=== PATIENT | female | born 1935 | race Caucasian/White ===

== ENCOUNTER 2016-09-21 22:14 | Inpatient (IN) | payer OTHER ==
[~2016-09-21] VITALS: Ht 162.6 cm; Wt 81.6 kg
[~2016-09-21 22:14] MED LIST: AMLODIPINE BES2.5 M1 PO; ANTIFUNGAL30 G1 TOP; ATIVAN0.5 M1 PO; BISCOLAX10 M1 PR; CLARITIN10 M3 PO; CLONAZEPAM0.5 M2 PO; FOLIC ACID1 M1 PO; GABAPENTIN300 M2 PO; IRON325 M2 PO; LISINOPRIL20 M1 PO; LOPERAMIDE2 M2 PO; MACROBID 100 M100 MG PO; METOPROLOL TART25 M1 PO; MILK OF MA400 MG/52 PO; OMEPRAZOLE20 M2 PO; PAIN RELIEF650 MG PO; PERPHENAZINE2 M1 PO; SENNA S TABLET1 EACH PO; SPIRIVA18 MCG INH; TYLENOL WITH C1 EACH PO; TYLENOL325 M1 PO; VITAMIN D1000 UNIT PO
--- NOTE | 2016-09-21 22:18 | NUR ---
PT BIBA FROM ECF S/P MECHANICAL FALL TONIGHT. PT HAS NO COMPLAINTS FROM FALL, HOWEVER C/O N/V AND POOR PO INTAKE OVER THE LAST FEW DAYS. PT ALSO HAS NOTICABLE UMBILICAL HERNIA. LIZ CALIX AT BEDSIDE
--- NOTE | 2016-09-21 22:21 | ED GI/GU/ABDOMINAL COMPLAINT ---
History of Present Illness General Chief Complaint: Nausea, Vomiting, Diarrhea Stated Complaint: BIBA N/V/D Source: patient Exam Limitations: no limitations Vital Signs & Intake/Output Vital Signs & Intake/Output Vital Signs Date Time Temp Pulse Resp B/P Pulse O2 O2 Flow FiO2 Ox Delivery Rate 09/21 2359 99.5 67 20 100/57 93 Nasal 2.0L Cannula 09/21 2321 Room Air 09/21 2219 98.0 65 19 92/58 ED Intake and Output 09/22 0000 09/21 1200 Intake Total 1000 Output Total Balance 1000 Intake, IV 1000 Patient 180 lb Weight Allergies Coded Allergies: No Known Allergies (08/06/16) Triage Note: PT BIBA FROM ECF S/P MECHANICAL FALL TONIGHT. PT HAS NO COMPLAINTS FROM FALL, HOWEVER C/O N/V AND POOR PO INTAKE OVER THE LAST FEW DAYS. PT ALSO HAS NOTICABLE UMBILICAL HERNIA. LIZ CALIX AT BEDSIDE Triage Nurses Notes Reviewed? yes ? N Is pt currently ? No Onset: Abrupt Duration: day(s): (4), constant, continues in ED Timing: recent history Quality/Severity: mild, moderate Location: generalized abdomen No Modifying Factors: none HPI: 81-year-old female brought emergency room for nausea vomiting diarrhea has been going on for the past 4 days. Patient comes from an assisted living facility. When the patient was coming out of the bathroom she reports that her legs gave out and she kind of just come off the ground but did not fall hard and hit her head or have any neck pain or trauma from the fall. Patient has been feeling very weak and not eating. Patient's blood pressure was borderline low by EMS. Patient also complaining of some abdominal pain and discomfort. Denies any chest pain. Denies any shortness of breath. Denies any cough. (YOGI HILL,GARRY) Reconcile Medications Acetaminophen (Tylenol) 325 MG TABLET 650 MG PO QHS PAIN (Reported) Acetaminophen (Pain Relief) 650 MG TABLET.ER 650 MG PO 1200 PAIN (Reported) Amlodipine Besylate 2.5 MG TABLET 1 TAB PO DAILY HTN (Reported) Bisacodyl (Biscolax) 10 MG SUPP.RECT 10 MG AL QODPRN PRN CONSTIPATION ( Reported) Cholecalciferol (Vitamin D3) (Vitamin D) 1,000 UNIT TABLET 1 TAB PO DAILY SUPPLEMENT (Reported) Clonazepam 0.5 MG TABLET 1 TAB PO BID PSYCH (Reported) Clotrimazole (Antifungal) 1 % CREAM..G. 1 MAGGIE TOP BID PRN ANITFUNGAL ( Reported) Ferrous Sulfate (IRON) 325 MG (65 MG IRON) CAPSULE.ER 325 MG PO DAILY SUPPLEMENT (Reported) Folic Acid 1 MG TABLET 1 TAB PO DAILY SUPPLEMENT (Reported) Gabapentin 300 MG CAPSULE 300 MG PO BID PAIN (Reported) Lisinopril 20 MG TABLET 1 TAB PO DAILY HTN (Reported) Loperamide HCl (Loperamide) 2 MG CAPSULE 2 MG PO Q3H PRN DIARRHEA (Reported) Loratadine (Claritin) 10 MG CAPSULE 10 MG PO DAILY ALLERGIES (Reported) Lorazepam (Ativan) 0.5 MG TABLET 0.25 MG PO BIDPRN PRN ANXIETY (Reported) Magnesium Hydroxide (Milk Of Magnesia) 400 MG/5 ML ORAL.SUSP 30 ML PO QODPRN PRN CONSTIPATION (Reported) Metoprolol Tartrate 25 MG TABLET 12.5 MG PO BID HTN (Reported) Omeprazole 20 MG CAPSULE.DR 1 CAP PO DAILY GERD (Reported) Perphenazine 2 MG TABLET 3 MG PO DAILY SCHIZOAFFECTIVE (Reported) Sennosides/Docusate Sodium (Senna S Tablet) 8.6 MG-50 MG TABLET 1 TAB PO DAILY GI (Reported) Tiotropium [place] (Spiriva) 18 MCG CAP.W.DEV 18 MCG INH DAILY COPD (Reported ) Tylenol With Codeine (Tylenol With Codeine #3 Tablet) 300 MG-30 MG TABLET 1 TAB PO BID PAIN (Reported) (DILCIA BENJAMIN,JAKE Arita) Past History Travel History Traveled to [place] past 21 day No Medical History Any Pertinent Medical History? see below for history EENT: allergies Cardiovascular: hypertension Respiratory: COPD Gastrointestinal: GERD, DUODENAL ULCER Psychiatric: anxiety, schizo affective disorder Surgical History Surgical History: non-contributory Psychosocial History Who do you live with Patient/Self What is your primary language Congolese Family History Hx Contributory? No (GARRY ARGUETA) Review of Systems Review of Systems Constitutional: Reports: see HPI. EENTM: Reports: no symptoms. Respiratory: Reports: no symptoms. Cardiovascular: Reports: no symptoms. GI: Reports: see HPI. Genitourinary: Reports: see HPI. Musculoskeletal: Reports: no symptoms. Skin: Reports: no symptoms. Neurological/Psychological: Reports: no symptoms. Hematologic/Endocrine: Reports: no symptoms. Immunologic/Allergic: Reports: no symptoms. All Other Systems: Reviewed and Negative (GARRY ARGUETA) Physical Exam Physical Exam General Appearance: well developed/nourished, no apparent distress, alert Head: atraumatic, normal appearance Eyes: Bilateral: normal appearance. Ears, Nose, Throat, Mouth: hearing grossly normal, moist mucous membrane Neck: normal inspection, full range of motion, normal alignment Respiratory: normal breath sounds, no respiratory distress Cardiovascular: regular rate/rhythm Gastrointestinal: soft, non-tender Back: normal inspection Extremities: normal range of motion Neurologic/Psych: awake, alert, oriented x 3, normal gait Skin: intact, normal color Core Measures ACS in differential dx? Yes Severe Sepsis Present: No Septic Shock Present: No (GARRY ARGUETA) ED Sepsis Exam Date of Focused Sepsis Exam: 09/21/16 Time of Focused Sepsis Exam: 2221 Sepsis Cardiac Exam: Regular Rate/Rhythm Sepsis Resp Exam: CTA Sepsis Cap Refill Exam: >2 sec Sepsis Peripheral Pulse Exam: Normal Sepsis Peripheral Pulse Location: Radial Sepsis Skin Color Exam: Jaundiced Skin Temp/Moisture Exam: Cool/Dry (GARRY ARGUETA) Progress Differential Diagnosis: appendicitis, biliary colic, cholecystitis, diverticulitis, ectopic , gastritis, hepatitis, hernia, hemorrhoids, ischemic bowel, inflamm bowel dis, kidney stone, Magaly-Jade tear, ovarian cyst , ovarian torsion, pancreatitis, PID/cervicitis, peptic ulcer, PUD/GERD, perforated viscous, SBO, threatened AB, UTI/pyelo Plan of Care: Orders Procedure Date/time Status LACTIC ACID 09/22 0117 Active Admit to inpatient 09/22 0040 Active NGT 09/22 0031 Active Jason, Insertion/Removal/Asses 09/21 2344 Active CULTURE,URINE 09/21 234 Active BLOOD CULTURE 09/21 2216 Active URINALYSIS 09/21 2216 Complete TROPONIN LEVEL 09/21 2216 Complete MAGNESIUM 09/21 2216 Complete LACTIC ACID 09/21 2216 Complete COMPREHENSIVE METABOLIC PANEL 09/21 2216 Complete CBC WITHOUT DIFFERENTIAL 09/21 2216 Complete EKG 09/21 2216 Active Current Medications Sig/Hawa Start time Last Medication Dose Stop Time Status Admin Sodium Chloride 1,000 ML BOLUS ONE 09/21 2345 AC (Normal Saline 0.9%) 09/22 0044 Laboratory Tests 09/21/162352: Urinalysis LIGHT H, Urine Color YEL, Urine Clarity CLEAR, Urine pH 5.0, Ur Specific [place] 1.025, Urine Protein TRACE H, Urine Ketones NEG, Urine Nitrite NEG, Urine Bilirubin NEG@ICTO, Urine Urobilinogen 0.2, Ur Leukocyte Esterase TRACE H, Ur Microscopic SEDIMENT EXAMINED, Urine RBC 1-3, Urine WBC 5-10 H, Ur Epithelial Cells FEW, Urine Hemoglobin NEG, Urine Glucose NEG 09/21/162231: Anion Gap 16, Estimated GFR 20 L, BUN/Creatinine Ratio 22.2, Glucose 131 H, Lactic Acid 1.9, Calcium 8.4, Magnesium 1.7, Total Bilirubin 0.5, AST 20, ALT 27 , Alkaline Phosphatase 82, Troponin I 0.02, Total Protein 6.7, Albumin 3.5, Globulin 3.2, Albumin/Globulin Ratio 1.1, CBC w Diff NO MAN DIFF REQ, RBC 3.91 L, MCV 88.0, MCH 28.4, RDW 14.0, MPV 7.4, Gran % 84.8 H, Lymphocytes % 9.6 L, Monocytes % 5.0, Eosinophils % 0, Basophils % 0.6, Absolute Granulocytes 11.2 H , Absolute Lymphocytes 1.3, Absolute Monocytes 0.7 H, Absolute Eosinophils 0, Absolute Basophils 0.1, PUBS MCHC 32.3 L Microbiology 09/21 2352 URINE ROUT: Urine Culture - RECD 09/21 2248 BLOOD: Blood Culture - RECD 09/21 2229 BLOOD: Blood Culture - RECD Diagnostic Imaging: Viewed by Me: Radiology Read, CT Scan. Discussed w/RAD: Radiology Read, CT Scan. Initial ED EKG: normal intervals, normal p-waves, normal sinus rhythm, rate (83) , nonspecific ST T wave chg (YOGI HILL,GARRY) CXR Impression: PATIENT: CONNER ARANDA PRESENT AGE: 81 PATIENT ACCOUNT NO: [id number] : 35 LOCATION: [facility] ORDERING PHYSICIAN: GARRY HILL SERVICE DATE: 09/21/16 EXAM TYPE: RAD - XRY-PORTABLE CHEST XRAY EXAMINATION: XR PORTABLE CHEST CLINICAL INFORMATION: Weakness. COMPARISON: Chest x-ray 08/06/2016. TECHNIQUE: Portable view of the chest was obtained. FINDINGS: The lungs are mildly hypoinflated, without focal airspace consolidation. There is minimal dependent atelectasis. No pleural effusions or pneumothoraces are identified. Cardiomediastinal contours are within normal limits. Soft tissues are unremarkable. No acute osseous abnormality is identified. IMPRESSION: No acute pulmonary process. DICTATED BY: JORDAN AL MD DATE/TIME DICTATED:09/21/162247 DEPOSITION OPERATOR:FABIENNE DATE/TIME TRANSCRIBED:09/21/162247 CONFIDENTIAL, DO NOT COPY WITHOUT APPROPRIATE AUTHORIZATION. <Electronically signed in Other Vendor System> SIGNED BY: JORDAN AL MD 09/21/16 2001 Comments: Case was discussed with Dr. Freeman. The surgical PA will be down to evaluate the patient. (DILCIA BENJAMIN,JAKE Arita) Departure Departure Disposition: STILL A PATIENT Condition: Stable Referrals: AMADO BENJAMIN,TRISTIAN Saeed (PCP/Family) Departure Forms: Customer Survey General Discharge Information (GARRY ARGUETA) Departure Clinical Impression Primary Impression: Abdominal pain Secondary Impressions: Acute renal failure, Nausea & vomiting Admission Note Spoke With: CONRAD WHITLOCK MD Documentation of Exam: Documentation of any treatments & extenuating circumstances including Concerns Regarding Discharge (functional status, medication knowledge or non-compliance, living conditions, etc.) that warrant an admission rather than observation: [ Nothing by mouth, IV fluids, NG tube to low wall suction, surgery will consult. Aggressive hydration. Once patient is medically stable she will require Gastrografin and small bowel follow-through to see if there is an obstruction.] PA/MARINE INSULATOR Co-Sign Statement Statement: ED Attending supervision documentation- [X] I saw and evaluated the patient. I have also reviewed all the pertinent lab results and diagnostic results. I agree with the findings and the plan of care as documented in the PA's/MARINE INSULATOR's documentation. [X] I have reviewed the ED Record and agree with the PA's/MARINE INSULATOR's documentation. [] Additions or exceptions (if any) to the PAs/MARINE INSULATOR's note and plan are summarized below: [Patient was walking to the bathroom when her legs just gave out and she fell to the floor. Patient states that she has not been eating or drinking well because of nausea and vomiting over the past 4 days. Patient denies any diarrhea. Patient just generalized feels weak. Patient denies any pain anywhere. Patient states that her abdomen feels distended. Patient states that she does have an abdominal wall hernia but that is easily reducible. Patient had an abdominal and pelvic CAT scan performed with IV contrast. This was done because the patient's prior creatinine was looked at in mistake and her current creatinine was not yet back. Patient was aggressively treated with IV fluids prior to and after the CAT scan. Patient's umbilical hernia is easily reducible.] (DILCIA BENJAMIN,JAKE Arita) Critical Care Note Critical Care Note Critical Care Time: 30-74 min (YOGI HILL,GARRY)
[2016-09-21 22:41] LABS: ABSOLUTE BASOPHIL COUNT 0.1 /CUMM (0.0-0.2); ABSOLUTE EOSINOPHIL COUNT 0 /CUMM (0.0-0.7); ABSOLUTE GRANULOCYTE CT 11.2 /CUMM (1.4-6.5); ABSOLUTE LYMPH COUNT 1.3 /CUMM (1.2-3.4); ABSOLUTE MONOCYTE COUNT 0.7 /CUMM (0.10-0.60); BASOPHIL % 0.6 % (0.0-2.0); EOSINOPHIL % 0 % (0-5); HEMATOCRIT 34.4 % (37-47); MEAN CORPUSCULAR HGB 28.4 PG (27.0-31.0); MEAN CORPUSCULAR HGB CONC 32.3 G/DL (33.0-37.0); MEAN PLATELET VOLUME 7.4 FL (7.4-10.4); PLATELET COUNT 343 /CUMM (130-400); RED BLOOD CELL CT 3.91 /CUMM (4.20-5.40); WHITE BLOOD CELL COUNT 13.3 /CUMM (4.8-10.8)
[2016-09-21 22:48] LABS: GRANULOCYTE % 84.8 % (42.2-75.2)
--- NOTE | 2016-09-21 22:50 | NUR ---
PORTABLE CHEST XRAY DONE AT BEDSIDE.
--- NOTE | 2016-09-21 22:56 | RADIOLOGY REPORT ---
EXAMINATION: XR PORTABLE CHEST CLINICAL INFORMATION: Weakness. COMPARISON: Chest x-ray 08/06/2016. TECHNIQUE: Portable view of the chest was obtained. FINDINGS: The lungs are mildly hypoinflated, without focal airspace consolidation. There is minimal dependent atelectasis. No pleural effusions or pneumothoraces are identified. Cardiomediastinal contours are within normal limits. Soft tissues are unremarkable. No acute osseous abnormality is identified. IMPRESSION: No acute pulmonary process.
--- NOTE | 2016-09-21 23:19 | NUR ---
PT TO CAT SCAN VIA STRETCHER.
--- NOTE | 2016-09-21 23:58 | NUR ---
URINE TRIO SENT TO LAB. PT INCONTINENT OF STOOL. VIKI CARE PROVIDED. GARRIDO CATHETER INSERTED. 300CCS DARK YELLOW URINE OUTPUT. EDUCATED ON PURPOSE AND USE OF CATHETER.
--- NOTE | 2016-09-22 00:10 | NUR ---
SPOKE WITH PT DAUGHTER LIA. STATES SHE CANNOT GET HERE DUE TO WEATHER AND ROADS CLOSED. WILL CALL FOR UPDATES. NUMBERS , AND
--- NOTE | 2016-09-22 00:15 | CT SCAN REPORT ---
EXAMINATION: CT ABDOMEN AND PELVIS WITH CONTRAST CLINICAL INFORMATION: Abdominal pain and vomiting. COMPARISON: None. TECHNIQUE: Multidetector volumetric imaging was performed of the abdomen and pelvis after the IV administration of 93 mL of Optiray 320 intravenous contrast. Sagittal and coronal reformatted images were obtained on the technologist's workstation. DLP: 556 mGy-cm. FINDINGS: LUNG BASES: There is a partially visualized subpleural nodule along the periphery of the right middle lobe measuring 8 mm with surrounding groundglass opacities (series 2, image 1). There is minimal dependent right basilar atelectasis. No pleural or pericardial effusions are identified. LIVER, GALLBLADDER, AND BILIARY TREE: The liver is normal in size, shape, and attenuation. No focal hepatic lesion or biliary ductal dilatation is present. The gallbladder is distended without evidence of radiopaque gallstones, gallbladder wall thickening or pericholecystic inflammatory changes. The common bile duct is prominent and is visualized measuring up to 1.3 cm in diameter. No radiopaque intraductal stones are identified. PANCREAS: Generalized pancreatic atrophy. No peripancreatic inflammatory changes or fluid collections. SPLEEN: Unremarkable. ADRENAL GLANDS: Unremarkable. KIDNEYS AND URETERS: The kidneys are normal in size and enhance homogeneously, without solid parenchymal lesions. A 0.8 cm simple renal cortical cyst is identified within the lower pole of the right kidney. Also noted is a 0.6 cm simple renal cortical cyst within the midpole of the left kidney. There is no appreciable nephrolithiasis or hydroureteronephrosis of either kidney or renal collecting system. No ureteral stones are identified. BLADDER: Scattered foci of air within the urinary bladder. This is likely secondary to recent catheterization. GASTROINTESTINAL TRACT: Evaluation of the gastrointestinal system demonstrates multiple dilated loops of small bowel throughout the abdomen and pelvis. Dilated loops of small bowel appear to correspond to dilated loops of duodenum, jejunum and ileum. Of note, there is a site of transition along the left paramedian abdominal wall, in the region of a moderate-sized fat and small bowel containing left paramedian abdominal wall hernia at the level of the umbilicus. Loops of small bowel proximal to this incarcerated small bowel hernia are dilated. Loops of small bowel distal to this site or decompressed. The colon also appears decompressed although air and fluid are identified within the colon. There are postsurgical changes related to prior gastric surgery. No bowel wall pneumatosis is identified. There are no extraluminal foci of air to suggest perforation. No organizing intra-abdominal or pelvic fluid collections are identified and there is no free intraperitoneal air. ABDOMINAL WALL: As noted above, there is a moderate left paramedian abdominal wall hernia containing dilated loops of small bowel and fluid. LYMPH NODES: No significant abdominal or pelvic adenopathy. VASCULAR: Scattered atherosclerosis of the abdominal aorta and its branching vessels, without aneurysmal dilatation. The imaged abdominal vasculature appears to be grossly patent. PELVIC VISCERA: Unremarkable. OSSEOUS STRUCTURES: No acute osseous abnormality. Moderate multilevel degenerative changes of the imaged thoracolumbar spine. IMPRESSION: Multiple dilated loops of small bowel throughout the abdomen and pelvis secondary to obstructed loops of small bowel within a moderate-sized, left paramedian abdominal wall hernia, as described above. Loops of small bowel within the hernia sac and upstream to the hernia sac are distended. Loops of small bowel and colon distal to the ventral abdominal wall hernia are decompressed. Air and fluid are identified within decompressed loops of distal small bowel as well as the colon. This constellation of findings is indicative of at least a partial small bowel obstruction secondary to a moderate-sized left paramedian ventral abdominal wall hernia. No extraluminal foci of air to suggest perforation. No bowel wall pneumatosis. Scattered foci of air within the bladder lumen, likely secondary to recent catheterization. This critical result was discussed with Dr. Manuel Ware at 12:01 AM on 09/22/2016 and it was ascertained that the content and urgency of the report was understood at the time of direct communication.
--- NOTE | 2016-09-22 00:52 | NUR ---
3 L NS INFUSING AT THIS TIME. SURGICAL PA AT BEDSIDE TO EVAL.
--- NOTE | 2016-09-22 01:13 | History & Physical ---
SHAYNA BENJAMIN,MARIYA 09/22/16 0112: General Information and HPI MD Statement: I have seen and personally examined CONNER ARANDA and documented this H&P. The patient is a 81 year old F who presented with a patient stated chief complaint of [Nausea, vominting, diarrhea]. Source of Information: patient, old records, EMS Exam Limitations: no limitations (yesterday) History of Present Illness: patient is a 81-year-old female with past medical history significant for GERD, ventral wall herniation, perforated duodenal ulcer, anxiety, she is a affective disorder, hypertension, COPD came to the ER with nausea vomiting started 4 days ago. 5 weeks ago she was transferred to a new extended care facility but increase the heights. 6 days ago she had a UTI for which she was given Lomotil. For the past 3 days she had constipation along with nausea and vomiting. She was able to tolerate liquid diet. She had one episode of vomitus each day which is clear liquid without any blood in it. Since yesterday she started to have diarrhea - one episode so far watery and loose without any definite. She also reports crampy abdominal pain in the epigastric region where she had ventral wall herniation. She denies any fevers/chills/sick contacts/change in food habits. She felt weak today, gave out while she is walking and she was able to walk with a walker at baseline. She denies any chest pain, shortness of breath, redness, changes in urinary habits. Allergies/Medications Allergies: Coded Allergies: No Known Allergies (08/06/16) Home Med list Acetaminophen (Tylenol) 325 MG TABLET 650 MG PO QHS PAIN (Reported) Acetaminophen (Pain Relief) 650 MG TABLET.ER 650 MG PO 1200 PAIN (Reported) Amlodipine Besylate 2.5 MG TABLET 1 TAB PO DAILY HTN (Reported) Bisacodyl (Biscolax) 10 MG SUPP.RECT 10 MG VA QODPRN PRN CONSTIPATION ( Reported) Cholecalciferol (Vitamin D3) (Vitamin D) 1,000 UNIT TABLET 1 TAB PO DAILY SUPPLEMENT (Reported) Clonazepam 0.5 MG TABLET 1 TAB PO BID PSYCH (Reported) Clotrimazole (Antifungal) 1 % CREAM..G. 1 MAGGIE TOP BID PRN ANITFUNGAL ( Reported) Ferrous Sulfate (IRON) 325 MG (65 MG IRON) CAPSULE.ER 325 MG PO DAILY SUPPLEMENT (Reported) Folic Acid 1 MG TABLET 1 TAB PO DAILY SUPPLEMENT (Reported) Gabapentin 300 MG CAPSULE 300 MG PO BID PAIN (Reported) Lisinopril 20 MG TABLET 1 TAB PO DAILY HTN (Reported) Loperamide HCl (Loperamide) 2 MG CAPSULE 2 MG PO Q3H PRN DIARRHEA (Reported) Loratadine (Claritin) 10 MG CAPSULE 10 MG PO DAILY ALLERGIES (Reported) Lorazepam (Ativan) 0.5 MG TABLET 0.25 MG PO BIDPRN PRN ANXIETY (Reported) Magnesium Hydroxide (Milk Of Magnesia) 400 MG/5 ML ORAL.SUSP 30 ML PO QODPRN PRN CONSTIPATION (Reported) Metoprolol Tartrate 25 MG TABLET 12.5 MG PO BID HTN (Reported) Omeprazole 20 MG CAPSULE.DR 1 CAP PO DAILY GERD (Reported) Perphenazine 2 MG TABLET 3 MG PO DAILY SCHIZOAFFECTIVE (Reported) Sennosides/Docusate Sodium (Senna S Tablet) 8.6 MG-50 MG TABLET 1 TAB PO DAILY GI (Reported) Tiotropium Lorraine (Spiriva) 18 MCG CAP.W.DEV 18 MCG INH DAILY COPD (Reported ) Tylenol With Codeine (Tylenol With Codeine #3 Tablet) 300 MG-30 MG TABLET 1 TAB PO BID PAIN (Reported) Compliance With Home Meds: FAIR Past History Travel History Traveled to [place] past 21 day No Medical History EENT: allergies Cardiovascular: hypertension Respiratory: COPD Gastrointestinal: GERD, DUODENAL ULCER Psychiatric: anxiety, schizo affective disorder Surgical History Surgical History: perforated duodenal ulcer Past Family/Social History Family History Relations & Conditions if any Relation not specified for: *No pertinent family history Psychosocial History Where do you live? Extended Care Facility Who Do You Live With? self Services at Home: Nursing, Physical Therapy Smoking Status: Former Smoker ETOH Use: denies use Illicit Drug Use: denies illicit drug use Living Will? yes Functional Ability ADLs Independent: dressing, eating, toileting, bathing. Ambulation: walker IADLs Needs Assist: shopping, housework, finances, food prep, telephone, transportation, medication admin. Employment History Employment Retired Review of Systems Review of Systems Constitutional: Reports: see HPI, malaise, weakness. EENTM: Reports: see HPI, visual changes, hearing changes. Cardiovascular: Reports: no symptoms, see HPI. Respiratory: Reports: see HPI. GI: Reports: see HPI, diarrhea, nausea, vomiting. Genitourinary: Reports: see HPI. Musculoskeletal: Reports: no symptoms, see HPI. Skin: Reports: no symptoms, see HPI. Neurological/Psychological: Reports: no symptoms, see HPI. All Other Systems: Reviewed and Negative Comments ROS negative except the above. Exam & Diagnostic Data Last 24 Hrs of Vital Signs/I&O Vital Signs Date Time Temp Pulse Resp B/P Pulse O2 O2 Flow FiO2 Ox Delivery Rate 09/22 0636 97.8 88 16 102/66 92 Nasal Cannula 09/22 0239 98.1 81 18 114/56 95 Nasal 2.0L Cannula 09/21 2359 99.5 67 20 100/57 93 Nasal 2.0L Cannula 09/21 2321 Room Air 09/21 2218 98.0 65 19 92/58 Intake & Output 09/22 1600 09/22 0800 09/22 0000 Intake Total 1000 Output Total 100 Balance -100 1000 Intake, IV 1000 Number 1 Bowel Movements Output, 100 Gastric Drainage Patient 81.647 kg Weight Physical Exam General Appearance Alert, Oriented X3, Cooperative, Mild Distress Skin No Rashes, No Breakdown HEENT Atraumatic, PERRLA, EOMI Neck Supple, No JVD Cardiovascular Regular Rate, Normal S1, Normal S2, No Murmurs Lungs Clear to Auscultation, Normal Air Movement Abdomen ventral wall herniation evident in the epigastric region. Tender to palpation. Hyperactive bowel sounds. Neurological Normal Speech, Normal Tone, Sensation Intact Extremities No Clubbing, No Cyanosis, No Edema Vascular Pulses Symmetrical Body Front and Back (Adult) 1) Ventral wall herniation, partially reducible. Last 24 Hrs of Labs/Maurice: Laboratory Tests 09/22/16 0420: Lactic Acid 1.2 09/22/16 0420: Anion Gap 8, Estimated GFR 31 L, BUN/Creatinine Ratio 28.8 H, CBC w Diff NO MAN DIFF REQ, RBC 3.44 L, MCV 89.0, MCH 28.7, RDW 14.5, MPV 7.4, Gran % 74.1, Lymphocytes % 15.4 L, Monocytes % 10.2 H, Eosinophils % 0, Basophils % 0.3, Absolute Granulocytes 7.8 H, Absolute Lymphocytes 1.6, Absolute Monocytes 1.1 H, Absolute Eosinophils 0, Absolute Basophils 0, PUBS MCHC 32.3 L 09/21/162352: Urinalysis LIGHT H, Urine Color YEL, Urine Clarity CLEAR, Urine pH 5.0, Ur Specific Warren[place] 1.025, Urine Protein TRACE H, Urine Ketones NEG, Urine Nitrite NEG, Urine Bilirubin NEG@ICTO, Urine Urobilinogen 0.2, Ur Leukocyte Esterase TRACE H, Ur Microscopic SEDIMENT EXAMINED, Urine RBC 1-3, Urine WBC 5-10 H, Ur Epithelial Cells FEW, Urine Hemoglobin NEG, Urine Glucose NEG 09/21/162231: Anion Gap 16, Estimated GFR 20 L, BUN/Creatinine Ratio 22.2, Glucose 131 H, Lactic Acid 1.9, Calcium 8.4, Magnesium 1.7, Total Bilirubin 0.5, AST 20, ALT 27 , Alkaline Phosphatase 82, Troponin I 0.02, Total Protein 6.7, Albumin 3.5, Globulin 3.2, Albumin/Globulin Ratio 1.1, CBC w Diff NO MAN DIFF REQ, RBC 3.91 L, MCV 88.0, MCH 28.4, RDW 14.0, MPV 7.4, Gran % 84.8 H, Lymphocytes % 9.6 L, Monocytes % 5.0, Eosinophils % 0, Basophils % 0.6, Absolute Granulocytes 11.2 H , Absolute Lymphocytes 1.3, Absolute Monocytes 0.7 H, Absolute Eosinophils 0, Absolute Basophils 0.1, PUBS MCHC 32.3 L Microbiology 09/21 2352 URINE ROUT: Urine Culture - RECD 09/21 2248 BLOOD: Blood Culture - RECD 09/21 2229 BLOOD: Blood Culture - RECD Diagnostic Data CXR Results IMPRESSION: - Technically limited study. Distal aspect of nasogastric tube is difficult to definitively assess on this exam, suspected to course below the diaphragm towards the stomach. I would recommend a dedicated abdominal radiograph to ensure proper positioning given the limits of this exam. - Central vascular congestion without overt edema. Bibasilar atelectasis. Other Results Abdomen and pelvis CT IMPRESSION: Multiple dilated loops of small bowel throughout the abdomen and pelvis secondary to obstructed loops of small bowel within a moderate-sized, left paramedian abdominal wall hernia, as described above. Loops of small bowel within the hernia sac and upstream to the hernia sac are distended. Loops of small bowel and colon distal to the ventral abdominal wall hernia are decompressed. Air and fluid are identified within decompressed loops of distal small bowel as well as the colon. This constellation of findings is indicative of at least a partial small bowel obstruction secondary to a moderate-sized left paramedian ventral abdominal wall hernia. No extraluminal foci of air to suggest perforation. No bowel wall pneumatosis. Scattered foci of air within the bladder lumen, likely secondary to recent catheterization. Assessment/Plan Assessment: patient is a 81-year-old female with past medical history significant for GERD, ventral wall herniation, perforated duodenal ulcer, anxiety, she is a affective disorder, hypertension, COPD came to the ER with nausea vomiting started 4 days ago. She also had diarrhea since yesterday. ER Vital signs Tmax of 99.5, pulse 67, blood pressure 92/58 mmHg, pulse ox of 92% Significant labs include white count of 13.3, creatinine of 2.3, lactic acid of 1.9 Urinalysis is cloudy with leukocyte esterase positive CT abdomen and pelvis with IV contrast shows multiple dilated bowel loops with partial obstruction in the herniated region Plan Small bowel obstruction secondary to obstructed bowel loop ventral wall herniation * Admitted to general medicine * Nothing by mouth with NG suction * Aggressive IV fluids hydration * Pain management and F/U blood cultures * Surgery on board, we'll closely follow for now LACY likely from decreased dehydration * There Creatinine of 2.3 with a baseline of 1.2 * Started on IV fluids at the rate of 200 mL per hour * We will trend down to 100 mL per hour in the next few hours * Monitor BEP every day and F/U urine cultures * Strict in's and outs with a Jason catheter * She had clear urine in the ER Mild hypotension * IV hydration for now * Holding all antihypertensives including metoprolol tartarate 12.5mg, amlodipine 2.5mg, Lisinopril 20mg. History of GERD * On pantoprazole 40mg IV History of COPD * TRC/nebs History of schizoaffective disorder * On clonazepam, lorazepam, perphenazine at home * Will resume as her clinical status improves DVT Prophylaxis * SC heparin Code Status * Full code As Ranked By This Provider Problem List: 1. Acute renal failure 2. Nausea & vomiting 3. Abdominal pain 4. Accident due to mechanical fall without injury Core Measures/Miscellaneous Acute Coronary Syndrome ACS Diagnosis: No Cerebrovascular Accident CVA/TIA Diagnosis: No Congestive Heart Failure CHF Diagnosis: No Venous Thromboembolism VTE Risk Factors: Age > 40, Immobility, paresis VTE Prophylaxis Ordered Inpt: Pharm- Heparin No Mech VTE prophylaxis d/t: No contraindications No VTE Pharm Prophylaxis d/t: No contraindications VTE Diagnosis: No VTE Type: NONE VTE Confirmed by (Test): NONE Severe Sepsis Severe Sepsis Present: No Septic Shock Septic Shock Present: No Miscellaneous Documentation Attending Case Discussed With: CONRAD WHITLOCK MD Primary Care Physician: TRISTIAN FISCHER MD Patient sees these Specialists Unknown Level of Patient Care: General Medicine FRANCISCO JAVIER MCCLENDON MD 09/22/16 0424: Resident Review Statement Resident Statement: examined this patient, discussed with campus recruiting intern, agreed with campus recruiting intern, reviewed EMR data (avail), reviewed images, amended to note Other Findings: This is 81 year female resident of [facility] was sent in with chief complaint of 3 days history of persistent nausea with vomiting associated with abdominal pain. Patient has past medical history of COPD, hypertension, GERD, anxiety, schizoaffective disorder, perforated duodenal ulcer which was repaired 4 years prior to admission, ventral abdominal wall hernia was fine up until 45 days prior to admission when she developed episode of diarrhea and her PCP recommended her to take Lomotil. Since then patient remained constipated for past 3 days and noted to have persistent nausea with 1 episode of food containing nonbloody vomiting/day associated with abdominal distention specifically ventral wall hernia distention with crampy abdominal pain surrounding ventral wall hernia. Patient was not able to moderate any food for past 3 days and was on clear liquid diet. Due to persistent nausea/vomiting patient was sent in to ER for further evaluation. Patient reports one episode of loose BM yesterday night. She denies any fever, chills, sick contacts, change in diet, recent travel. She denies any chest pain, shortness of breath, urinary symptoms. Her vitals on admission were T 99.5, HR 67, RR 20, BP 100/57, O2 sat 93% on 2 L. On physical exam patient noted alert oriented 3 in [id number] distress, HEENT PERRLA EOMI, neck supple, noted NG tube placed through right nare,, heart S1-S2 normal without murmur, lungs clear on auscultation, abdomen noted distended with hyperactive bowel sounds and noted tenderness around ventral wall hernia with outpouching ventral wall hernia which was easily reducible on superior part but noted nonreducible inferior hard hernia wall, no peripheral edema, no focal gross neuro deficit. Labs revealed leukocytosis of 13,300 with left shift, H&H 11.1/34.4, sodium 131, BUN 51, creatinine 2.3 (baseline creatinine 1.2, blood glucose 131, lactic acid 1.9, magnesium 1.7, normal LFT, negative troponin. UA showed trace leukocyte esterase with WBC of 5-10 CT abdomen and pelvis revealed evidence of partial small bowel obstruction secondary to a moderate-sized left paramedian ventral abdominal wall hernia. EKG showed normal sinus rhythm with heart rate of 83, PVC no acute ST-T changes, QTC 447 Assessment: This is 81-year-old female with past medical history of COPD hypertension, perforated tuna ulcer, ventral abdominal wall hernia presented with 3 days history of nausea, vomiting associated with abdominal pain found to have partial small bowel obstruction with moderate size left paramedian ventral abdominal wall hernia. 1. Small bowel obstruction secondary to partially obstructed bowel loop in ventral abdominal wall hernia - Admit to general medicine floor - Keep nothing by mouth - Continue NG section - Aggressive IV fluid hydration - Pain management - Appreciate surgical input 2. AK I likely secondary to dehydration - Continue aggressive IV fluid hydration - Monitor renal function - Strict DONNIE's with Jason catheter 3. Borderline hypotension - Continue IV fluid hydration - Hold all antihypertensive medication 4. COPD - Continue TRC 5. Schizoaffective disorder and anxiety - All oral anxiolytic medication on hold as patient is nothing by mouth 6. DVT prophylaxis - Subcutaneous heparin 7. Full code CONRAD WHITLOCK 09/22/16 0644: Attending MD Review Statement Attending Statement Attending MD Statement: examined this patient, discuss w/resident/PA/PRINCIPAL SOFTWARE ENGINEER, agreed w/resident/PA/PRINCIPAL SOFTWARE ENGINEER, reviewed EMR data (avail), reviewed images, amended to note Attending Assessment/Plan: Cc: Nausea, vomiting, diarrhea, fall PMH: COPD, HTN, GERD, schizoaffective disorder, surgery for duodenal ulcer perforation. Patient had nausea vomiting last 3 days, progressively decreased by mouth intake since last 3 days, legs gave out and had a fall without trauma. So she came to ER. Patient had diarrhea before, followed by constipation for 3 days. Vitals: T max 99.5, HR, RR in acceptable range BP at presentation 92/58 improved to 114/56 after hydration, saturating well on 2 L nasal cannula. On exam: A O 3 , mild distress, neck supple, no lymphadenopathy, mucosa dry, no JVD. Abdomen: Distended, tympanic in upper quadrants, ventral hernia partially reducible, decreased bowel sounds right lower quadrant, increased gurgling sound ultrasound ventral hernia. CVS: S1-S2, RRR. RS: Clear entry bilaterally. No focal neurological deficit. No dependent edema. Labs: WBC 13.3, neutrophils 84%, bicarbonate 20, creatinine 2.3 (increased from 1.2 in July), anion gap 16, LFT unremarkable, UA shows leukocyte esterase. CXR: No acute pulmonary process X-ray abdomen and pelvis with IV contrast: Multiple dilated loops of small bowel throughout the abdomen and pelvis secondary to obstructed loops of small bowel within a moderate-sized, left paramedian abdominal wall hernia, as described above. Loops of small bowelwithin the hernia sac and upstream to the hernia sac are distended. Loops of small bowel and colon distal to the ventral abdominal wall hernia are decompressed. Air and fluid are identified within decompressed loops of distal small bowel as well as the colon. This constellation of findings is indicative of at least a partial small bowel obstruction secondary to a moderate-sized left paramedian ventral abdominal wall hernia. No extraluminal foci of air to suggest perforation. No bowel wall pneumatosis. Assessment and plan #1 ? Partial small bowel obstruction: CT findings as mentioned above, ventral hernia is partially reducible, Surgery was consulted, who suggested NG tube and barium swallow follow-through in morning. Continue NG tube to low suction, nothing by mouth, pain control, trend lactate #2 acute kidney injury: Probably secondary to volume contraction, continue aggressive hydration, along with elevated creatinine patient received IV contrast in ER, repeat BMP in a.m., strict I's and O's with Jason. #3 history of COPD: When necessary nebulization with albuterol and ipratropium. #4 HTN: Hold all oral antihypertensives, blood pressure in the low normal side with elevated creatinine. #5 DVT prophylaxis with heparin, adequate pain control
--- NOTE | 2016-09-22 01:14 | NUR ---
BED ASSIGNMENT [phone]
--- NOTE | 2016-09-22 01:20 | Cons- General Surgery ---
ERLINAD YUAN 09/22/16 0104: General Information and HPI Consulting Request Date of Consult: 09/22/16 Requested By: Emergency department Reason for Consult: Small bowel obstruction with possible incarcerated hernia Source of Information: patient, CAT scan taken today Exam Limitations: clinical condition, confusion History of Present Illness: Mr. Valentine is an 81-year-old female resident of an area assisted living home with past medical history of hypertension anxiety COPD schizo affective disorder , and past surgical history of hernia repair and perforated duodenal ulcer, presents with weakness at assisted living facility associated with fall and anorexia over the past 2 days associated with nausea and vomiting. She states that she has had normal urination but has complained of diarrhea over the past 2 days. She also states that she has a history of abdominal wall hernia that she has noticed for about 3 years and has never been painful. CAT scan evaluation in the emergency room today demonstrates dilated loops of small bowel proximal to the site of a ventral hernia. Allergies/Medications Allergies: Coded Allergies: No Known Allergies (08/06/16) Home Med List: Acetaminophen (Tylenol) 325 MG TABLET 650 MG PO QHS PAIN (Reported) Acetaminophen (Pain Relief) 650 MG TABLET.ER 650 MG PO 1200 PAIN (Reported) Amlodipine Besylate 2.5 MG TABLET 1 TAB PO DAILY HTN (Reported) Bisacodyl (Biscolax) 10 MG SUPP.RECT 10 MG NC QODPRN PRN CONSTIPATION ( Reported) Cholecalciferol (Vitamin D3) (Vitamin D) 1,000 UNIT TABLET 1 TAB PO DAILY SUPPLEMENT (Reported) Clonazepam 0.5 MG TABLET 1 TAB PO BID PSYCH (Reported) Clotrimazole (Antifungal) 1 % CREAM..G. 1 MAGGIE TOP BID PRN ANITFUNGAL ( Reported) Ferrous Sulfate (IRON) 325 MG (65 MG IRON) CAPSULE.ER 325 MG PO DAILY SUPPLEMENT (Reported) Folic Acid 1 MG TABLET 1 TAB PO DAILY SUPPLEMENT (Reported) Gabapentin 300 MG CAPSULE 300 MG PO BID PAIN (Reported) Lisinopril 20 MG TABLET 1 TAB PO DAILY HTN (Reported) Loperamide HCl (Loperamide) 2 MG CAPSULE 2 MG PO Q3H PRN DIARRHEA (Reported) Loratadine (Claritin) 10 MG CAPSULE 10 MG PO DAILY ALLERGIES (Reported) Lorazepam (Ativan) 0.5 MG TABLET 0.25 MG PO BIDPRN PRN ANXIETY (Reported) Magnesium Hydroxide (Milk Of Magnesia) 400 MG/5 ML ORAL.SUSP 30 ML PO QODPRN PRN CONSTIPATION (Reported) Metoprolol Tartrate 25 MG TABLET 12.5 MG PO BID HTN (Reported) Omeprazole 20 MG CAPSULE.DR 1 CAP PO DAILY GERD (Reported) Perphenazine 2 MG TABLET 3 MG PO DAILY SCHIZOAFFECTIVE (Reported) Sennosides/Docusate Sodium (Senna S Tablet) 8.6 MG-50 MG TABLET 1 TAB PO DAILY GI (Reported) Tiotropium [place] (Spiriva) 18 MCG CAP.W.DEV 18 MCG INH DAILY COPD (Reported ) Tylenol With Codeine (Tylenol With Codeine #3 Tablet) 300 MG-30 MG TABLET 1 TAB PO BID PAIN (Reported) Past History Medical History EENT: allergies Cardiovascular: hypertension Respiratory: COPD Gastrointestinal: GERD, DUODENAL ULCER Psychiatric: anxiety, schizo affective disorder Surgical History Pertinent Surgical History: non-contributory Psychosocial History ETOH Use: denies use Exam & Diagnostic Data Vital Signs and I&O Vital Signs Date Time Temp Pulse Resp B/P Pulse O2 O2 Flow FiO2 Ox Delivery Rate 09/21 2358 99.5 67 20 100/57 93 Nasal 2.0L Cannula 09/21 2320 Room Air 09/21 2218 98.0 65 19 92/58 Intake & Output 09/22 0000 09/21 1600 09/21 0800 09/21 0000 09/20 1600 Intake Total 1000 Output Total Balance 1000 Intake, IV 1000 Patient 180 lb Weight Physical Exam General Appearance: alert, mild distress, obese Head: atraumatic, normal appearance Eyes: Bilateral: normal appearance. Respiratory: wheezing Cardiovascular: regular rate/rhythm Gastrointestinal: abdomen is softly distended, no pain to palpation, large periumbilical ventral hernia that is completely reducible, with no erythema at the site of the hernia, positive bowel sounds, no evidence of peritonitis or guarding. Extremities: normal inspection Neurologic/Psych: awake, alert Last 24 Hours of Labs: Laboratory Tests 09/21 2232 Chemistry Sodium (137 - 145 mmol/L) 131 L Potassium (3.5 - 5.1 mmol/L) 4.8 Chloride (98 - 107 mmol/L) 94 L Carbon Dioxide (22 - 30 mmol/L) 20 L Anion Gap (5 - 16) 16 BUN (7 - 17 mg/dL) 51 H Creatinine (0.5 - 1.0 mg/dL) 2.3 H Estimated GFR (>60 ml/min) 20 L BUN/Creatinine Ratio (7 - 25 %) 22.2 Glucose (65 - 99 mg/dL) 131 H Lactic Acid (0.7 - 2.1 mmol/L) 1.9 Calcium (8.4 - 10.2 mg/dL) 8.4 Magnesium (1.6 - 2.3 mg/dL) 1.7 Total Bilirubin (0.2 - 1.3 mg/dL) 0.5 AST (14 - 36 U/L) 20 ALT (9 - 52 U/L) 27 Alkaline Phosphatase (<127 U/L) 82 Troponin I (< 0.11 ng/ml) 0.02 Total Protein (6.3 - 8.2 g/dL) 6.7 Albumin (3.5 - 5.0 g/dL) 3.5 Globulin (1.9 - 4.2 gm/dL) 3.2 Albumin/Globulin Ratio (1.1 - 2.2 %) 1.1 Hematology CBC w Diff NO MAN DIFF REQ WBC (4.8 - 10.8 /CUMM) 13.3 H RBC (4.20 - 5.40 /CUMM) 3.91 L Hgb (12.0 - 16.0 G/DL) 11.1 L Hct (37 - 47 %) 34.4 L MCV (81.0 - 99.0 FL) 88.0 MCH (27.0 - 31.0 PG) 28.4 RDW (11.5 - 14.5 %) 14.0 Plt Count (130 - 400 /CUMM) 343 MPV (7.4 - 10.4 FL) 7.4 Gran % (42.2 - 75.2 %) 84.8 H Lymphocytes % (20.5 - 51.1 %) 9.6 L Monocytes % (1.7 - 9.3 %) 5.0 Eosinophils % (0 - 5 %) 0 Basophils % (0.0 - 2.0 %) 0.6 Absolute Granulocytes (1.4 - 6.5 /CUMM) 11.2 H Absolute Lymphocytes (1.2 - 3.4 /CUMM) 1.3 Absolute Monocytes (0.10 - 0.60 /CUMM) 0.7 H Absolute Eosinophils (0.0 - 0.7 /CUMM) 0 Absolute Basophils (0.0 - 0.2 /CUMM) 0.1 PUBS MCHC (33.0 - 37.0 G/DL) 32.3 L Urines Urinalysis LIGHT H Urine Color (YEL,AMB,STR) YEL Urine Clarity (CLEAR) CLEAR Urine pH (5.0 - 8.0) 5.0 Ur Specific [place] (1.001 - 1.035) 1.025 Urine Protein (NEG,<30 MG/DL) TRACE H Urine Ketones (NEG) NEG Urine Nitrite (NEG) NEG Urine Bilirubin (NEG) NEG@ICTO Urine Urobilinogen (0.1 - 1.0 EU/dl) 0.2 Ur Leukocyte Esterase (NEG) TRACE H Ur Microscopic SEDIMENT EXAMINED Urine RBC (0 - 5 /HPF) 1-3 Urine WBC (0 - 2 /HPF) 5-10 H Ur Epithelial Cells (NONE,FEW) FEW Urine Hemoglobin (NEG) NEG Urine Glucose (N MG/DL) NEG Imaging Results: SERVICE DATE: 09/21/16 EXAM TYPE: CAT - CT ABD & PELVIS W IV CONTRAST EXAMINATION: CT ABDOMEN AND PELVIS WITH CONTRAST CLINICAL INFORMATION: Abdominal pain and vomiting. COMPARISON: None. TECHNIQUE: Multidetector volumetric imaging was performed of the abdomen and pelvis after the IV administration of 93 mL of Optiray 320 intravenous contrast. Sagittal and coronal reformatted images were obtained on the technologist's workstation. DLP: 556 mGy-cm. FINDINGS: LUNG BASES: There is a partially visualized subpleural nodule along the periphery of the right middle lobe measuring 8 mm with surrounding groundglass opacities (series 2, image 1). There is minimal dependent right basilar atelectasis. No pleural or pericardial effusions are identified. LIVER, GALLBLADDER, AND BILIARY TREE: The liver is normal in size, shape, and attenuation. No focal hepatic lesion or biliary ductal dilatation is present. The gallbladder is distended without evidence of radiopaque gallstones, gallbladder wall thickening or pericholecystic inflammatory changes. The common bile duct is prominent and is visualized measuring up to 1.3 cm in diameter. No radiopaque intraductal stones are identified. PANCREAS: Generalized pancreatic atrophy. No peripancreatic inflammatory changes or fluid collections. SPLEEN: Unremarkable. ADRENAL GLANDS: Unremarkable. KIDNEYS AND URETERS: The kidneys are normal in size and enhance homogeneously, without solid parenchymal lesions. A 0.8 cm simple renal cortical cyst is identified within the lower pole of the right kidney. Also noted is a 0.6 cm simple renal cortical cyst within the midpole of the left kidney. There is no appreciable nephrolithiasis or hydroureteronephrosis of either kidney or renal collecting system. No ureteral stones are identified. BLADDER: Scattered foci of air within the urinary bladder. This is likely secondary to recent catheterization. GASTROINTESTINAL TRACT: Evaluation of the gastrointestinal system demonstrates multiple dilated loops of small bowel throughout the abdomen and pelvis. Dilated loops of small bowel appear to correspond to dilated loops of duodenum, jejunum and ileum. Of note, there is a site of transition along the left paramedian abdominal wall, in the region of a moderate-sized fat and small bowel containing left paramedian abdominal wall hernia at the level of the umbilicus. Loops of small bowel proximal to this incarcerated small bowel hernia are dilated. Loops of small bowel distal to this site or decompressed. The colon also appears decompressed although air and fluid are identified within the colon. There are postsurgical changes related to prior gastric surgery. No bowel wall pneumatosis is identified. There are no extraluminal foci of air to suggest perforation. No organizing intra-abdominal or pelvic fluid collections are identified and there is no free intraperitoneal air. ABDOMINAL WALL: As noted above, there is a moderate left paramedian abdominal wall hernia containing dilated loops of small bowel and fluid. LYMPH NODES: No significant abdominal or pelvic adenopathy. VASCULAR: Scattered atherosclerosis of the abdominal aorta and its branching vessels, without aneurysmal dilatation. The imaged abdominal vasculature appears to be grossly patent. PELVIC VISCERA: Unremarkable. OSSEOUS STRUCTURES: No acute osseous abnormality. Moderate multilevel degenerative changes of the imaged thoracolumbar spine. IMPRESSION: Multiple dilated loops of small bowel throughout the abdomen and pelvis secondary to obstructed loops of small bowel within a moderate-sized, left paramedian abdominal wall hernia, as described above. Loops of small bowel within the hernia sac and upstream to the hernia sac are distended. Loops of small bowel and colon distal to the ventral abdominal wall hernia are decompressed. Air and fluid are identified within decompressed loops of distal small bowel as well as the colon. This constellation of findings is indicative of at least a partial small bowel obstruction secondary to a moderate-sized left paramedian ventral abdominal wall hernia. No extraluminal foci of air to suggest perforation. No bowel wall pneumatosis. Scattered foci of air within the bladder lumen, likely secondary to recent catheterization. This critical result was discussed with Dr. Manuel Ware at 12:01 AM on 09/22/2016 and it was ascertained that the content and urgency of the report was understood at the time of direct communication. DICTATED BY: JORDAN AL MD DATE/TIME DICTATED:09/21/162357 HEAD OF CONSERVATION:FABIENNE DATE/TIME TRANSCRIBED:09/21/162357 Assessment/Plan Assessment/Plan Ms. Valentine is an 81-year-old female with extensive past medical history, who is currently in acute renal failure presents with dizziness and nausea vomiting and fall. CAT scan today reveals a ventral hernia with dilated loops of small bowel proximal to the hernia. Examination at the bedside in the emergency room this evening demonstrates a completely reducible nontender ventral hernia. However the CAT scan also demonstrates an obstruction which would need further workup. After reviewing this case with Dr. Freeman he feels it best that the patient be admitted to the medical service and that surgery would continue serial abdominal exams, and in the morning obtain a barium swallow when okayed by the medical service to further evaluate the obstruction as needed. In the meantime the patient should have an NG tube to decompress her GI tract and with a history of vomiting minimize the chance of aspiration. Plan Admit to the medical service for optimization Serial abdominal exams Barium swallow to assess location of obstruction when okay by medicine Dr. Freeman will see the patient in the a.m. Consult Acknowledgment - Thank you for your consult request. ALLA SUÁREZ MD 09/23/16 0829: Assessment/Plan Consult Acknowledgment - Thank you for your consult request. 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 We removed the NGT at this time. I had a discussion with the pt and her daughter regarding fixing the hernia to prevent incarceration or strangulation in the future although they are hesitant and concerned of her risks of gen anesthesia given her past hx and hx of COPD. we discussed the possibility of developing bowel and requiring resection in the future if this strangulates and she does not seek medical attention quickly. At the present time she elects not to have surgery but will discuss further. can always perform elective as outpt if she changes her mind.
--- NOTE | 2016-09-22 01:38 | NUR ---
NGT PLACED IN LEFT NOSTRIL. AT 54CM. PT TOLERATED PROCEDURE WELL. 100CC OUTPUT. HOUSE STAFF HERE TO EVAL. AWAITING CHEST XRAY CONFIRMATION OF PLACEMENT.
--- NOTE | 2016-09-22 02:01 | NUR ---
REPORT GIVEN TO RN RACHEL
--- NOTE | 2016-09-22 02:20 | RADIOLOGY REPORT ---
XR PORTABLE CHEST CLINICAL INFORMATION: Check nasogastric tube position. COMPARISON: Chest x-ray 09/21/2015. TECHNIQUE: Portable view of the chest was obtained. FINDINGS: Technically limited study. Distal aspect of nasogastric tube is difficult to definitively assess on this exam, suspected to course below the diaphragm towards the stomach. I would recommend a dedicated abdominal radiograph to ensure proper positioning given the limits of this exam. There is central vascular congestion without overt edema. Mild left basilar atelectasis. No pneumothorax. Cardiac silhouette size is normal. There are no acute osseous findings. IMPRESSION: - Technically limited study. Distal aspect of nasogastric tube is difficult to definitively assess on this exam, suspected to course below the diaphragm towards the stomach. I would recommend a dedicated abdominal radiograph to ensure proper positioning given the limits of this exam. - Central vascular congestion without overt edema. Bibasilar atelectasis.
[2016-09-22 02:39] VITALS: BP 114/56
[2016-09-22 04:45] LABS: ABSOLUTE BASOPHIL COUNT 0 /CUMM (0.0-0.2); ABSOLUTE EOSINOPHIL COUNT 0 /CUMM (0.0-0.7); ABSOLUTE GRANULOCYTE CT 7.8 /CUMM (1.4-6.5); ABSOLUTE LYMPH COUNT 1.6 /CUMM (1.2-3.4); ABSOLUTE MONOCYTE COUNT 1.1 /CUMM (0.10-0.60); BASOPHIL % 0.3 % (0.0-2.0); EOSINOPHIL % 0 % (0-5); GRANULOCYTE % 74.1 % (42.2-75.2); HEMATOCRIT 30.6 % (37-47); MEAN CORPUSCULAR HGB 28.7 PG (27.0-31.0); MEAN CORPUSCULAR HGB CONC 32.3 G/DL (33.0-37.0); MEAN PLATELET VOLUME 7.4 FL (7.4-10.4); PLATELET COUNT 277 /CUMM (130-400); RBC DISTRIBUTION WIDTH 14.5 % (11.5-14.5); RED BLOOD CELL CT 3.44 /CUMM (4.20-5.40); WHITE BLOOD CELL COUNT 10.5 /CUMM (4.8-10.8)
--- NOTE | 2016-09-22 05:59 | RADIOLOGY REPORT ---
EXAMINATION: XR PORTABLE ABDOMEN CLINICAL INFORMATION: Small bowel obstruction for nasogastric tube check. COMPARISON: Chest x-ray performed earlier the same day. FINDINGS: Nasogastric tube courses below the diaphragm with its side-port and tip projecting over the gastric body. Lungs are limitedly assessed secondary to technique. Cardiac silhouette is normal. No acute osseous findings. Abdomen is only partially included on this study and not well assessed. IMPRESSION: The nasogastric tube tip and side-port project over the gastric body.
[2016-09-22 06:36] VITALS: BP 102/66
--- NOTE | 2016-09-22 06:46 | Admission Certification ---
Admission Certification Certification Statement - As attending physician, I certify that at the time of - admission, based on clinical presentation, severity of - symptoms, need for further diagnostic testing and - therapeutic interventions, and risk of adverse outcomes - without in-hospital treatment, in my clinical assessment, - this patient requires an acute hospital stay for a minimum - of two nights or longer. I have also considered psychsocial - factors such as support system, advanced age, financial - issues, cognitive issues, and failed out-patient treatments, - past re-admission history, safety of patient, and lack of - compliance as applicable. Specific rationale supporting this admission is: Partial small bowel obstruction, acute kidney injury
--- NOTE | 2016-09-22 07:47 | PN- General Surgery ---
Subjective Subjective: Reports no abdominal pain at this time. Denies passing flatus. She reports having a bm yesterdary prior to the ng tube insertion. She reports having this reducible incisional hernia for the past 4 years since her surgery at the [facility] due to "ulcers" from nsaid use at the time. She denies problems related to the hernia since it's occurrence except for occasional abdominal pain while showering. Objective Vital Signs and I&Os Vital Signs Date Time Temp Pulse Resp B/P Pulse O2 O2 Flow FiO2 Ox Delivery Rate 09/22 0636 97.8 88 16 102/66 92 Nasal Cannula 09/22 0239 98.1 81 18 114/56 95 Nasal 2.0L Cannula 09/21 2359 99.5 67 20 100/57 93 Nasal 2.0L Cannula 09/21 2321 Room Air 09/21 2219 98.0 65 19 92/58 Intake & Output 09/22 0800 09/22 0000 09/21 1600 09/21 0800 09/21 0000 09/20 1600 Intake Total 1000 Output Total 100 Balance -100 1000 Intake, IV 1000 Number 1 Bowel Movements Output, 100 Gastric Drainage Patient 180 lb Weight Physical Exam: General - alert & oriented. comfortable. no acute distress. Abdomen - soft. no bowel sounds appreciated. reducible incisional hernia present. nontender. ng tube to low wall suction with bilious drainage in container. Assessment/Plan Assessment/Plan Ms. Valentine is an 81-year-old female with known reducible incisional hernia, who presented with sbo currently npo / ivf / ng tube may consider f/u abdominal multiview today ?barium swallow to assess location of obstruction f/u labs serial exams to see her today
--- NOTE | 2016-09-22 09:06 | RADIOLOGY REPORT ---
EXAMINATION: XR ABDOMEN MULTIPLE VIEWS CLINICAL INDICATION: Nausea and vomiting. Bowel obstruction. COMPARISON: 09/22/2016 TECHNIQUE: 2 views, 4 images of the abdomen. FINDINGS: The enteric tube has been partially retracted since the prior study, terminating over the proximal stomach with the side-port in the region of the gastroesophageal junction. Gas and stool are seen throughout the small and large bowel without abnormal distention. Degenerative changes throughout the spine. Severe degenerative changes of both hips. The lung bases are clear. No evidence of free intraperitoneal air on the upright view. Surgical clips overlie the left abdomen. IMPRESSION: 1. Enteric tube terminates over the proximal stomach, appearing partially retracted since the prior study. Consider advancement. 2. Nonobstructive bowel gas pattern.
--- NOTE | 2016-09-22 12:30 | PN- Att Addend ---
Attending Addendum Attending Brief Note Patient seen and examined. Lying in bed. Complains of discomfort from NG tube. She however denies nausea vomiting. Denies abdominal pain or discomfort. She reports having a bowel movement last night after presenting to the hospital. She has is hemodynamically stable overnight and afebrile. She is put out about 200 mL of bilious fluid overnight through the NG tube. Vital Signs Date Time Temp Pulse Resp B/P Pulse O2 O2 Flow FiO2 Ox Delivery Rate 09/22 1001 100 Nasal 2.0L Cannula 09/22 0933 Nasal 2.0L Cannula 09/22 0800 Nasal Cannula 09/22 0636 97.8 88 16 102/66 92 Nasal Cannula 09/22 0239 98.1 81 18 114/56 95 Nasal 2.0L Cannula 09/21 2359 99.5 67 20 100/57 93 Nasal 2.0L Cannula 09/21 2321 Room Air 09/21 2219 98.0 65 19 92/58 Gen. appearance: Well-developed, not in acute painful distress Heart: S1-S2 regular Lungs: Good entry bilaterally, clear to auscultation Abdomen: Mildly distended, ventral hernia present easily reducible, hypoactive bowel sounds, nontender. Extremities: No pedal edema Skin: Intact with no rashes Neurologic: Alert and oriented 3 Laboratory Tests 09/22/16 0420: Lactic Acid 1.2 09/22/16419: Anion Gap 8, Estimated GFR 31 L, BUN/Creatinine Ratio 28.8 H, CBC w Diff NO MAN DIFF REQ, RBC 3.44 L, MCV 89.0, MCH 28.7, RDW 14.5, MPV 7.4, Gran % 74.1, Lymphocytes % 15.4 L, Monocytes % 10.2 H, Eosinophils % 0, Basophils % 0.3, Absolute Granulocytes 7.8 H, Absolute Lymphocytes 1.6, Absolute Monocytes 1.1 H, Absolute Eosinophils 0, Absolute Basophils 0, PUBS MCHC 32.3 L 09/21/162352: Urinalysis LIGHT H, Urine Color YEL, Urine Clarity CLEAR, Urine pH 5.0, Ur Specific [place] 1.025, Urine Protein TRACE H, Urine Ketones NEG, Urine Nitrite NEG, Urine Bilirubin NEG@ICTO, Urine Urobilinogen 0.2, Ur Leukocyte Esterase TRACE H, Ur Microscopic SEDIMENT EXAMINED, Urine RBC 1-3, Urine WBC 5-10 H, Ur Epithelial Cells FEW, Urine Hemoglobin NEG, Urine Glucose NEG 09/21/162231: Anion Gap 16, Estimated GFR 20 L, BUN/Creatinine Ratio 22.2, Glucose 131 H, Lactic Acid 1.9, Calcium 8.4, Magnesium 1.7, Total Bilirubin 0.5, AST 20, ALT 27 , Alkaline Phosphatase 82, Troponin I 0.02, Total Protein 6.7, Albumin 3.5, Globulin 3.2, Albumin/Globulin Ratio 1.1, CBC w Diff NO MAN DIFF REQ, RBC 3.91 L, MCV 88.0, MCH 28.4, RDW 14.0, MPV 7.4, Gran % 84.8 H, Lymphocytes % 9.6 L, Monocytes % 5.0, Eosinophils % 0, Basophils % 0.6, Absolute Granulocytes 11.2 H , Absolute Lymphocytes 1.3, Absolute Monocytes 0.7 H, Absolute Eosinophils 0, Absolute Basophils 0.1, PUBS MCHC 32.3 L Microbiology 09/21 2353 URINE ROUT: Urine Culture - RECD 09/21 2248 BLOOD: Blood Culture - RECD 09/21 2229 BLOOD: Blood Culture - RECD Problems: 1. Small bowel obstruction 2. Ventral hernia following complex abdominal surgery about 45 years ago. 3. Anxiety disorder 4. COPD 5. Hypertension but now with mild hypotension. 6. Acute kidney injury; resolving 7. Mild anemia; query chronicity Plan: -Keep nothing by mouth with NG tube in place to suction. -Serial abdominal exam and daily flat and upright abdominal x-rays. -If patient becomes more distended, develops increasing abdominal pain or develops signs and symptoms of an infection, please notify the general surgeon second steward immediately. -Anxiolytic therapy with Ativan 0.5 mg IV every 12 hours -Her LACY is improving. Continue hydration will change fluids to D5 half-normal saline. -Check her iron profile and repeat CBC in the a.m. to ensure stability. Repeat serum chemistry tomorrow to improvement of her creatinine. -Continue bronchodilator therapy. -She is complaining of discomfort from the NG tube. Recommend analgesic therapy with IV Tylenol. -Patient was on lisinopril, amlodipine and metoprolol at home. Her blood pressure has been borderline his hospitalization. If her blood pressure continues to improve recommend resuming first her metoprolol at the dose of 12.5 mg orally twice daily. We'll add on amlodipine and lisinopril only if blood pressure continues to improve as well as her renal function.
[2016-09-22 14:09] VITALS: BP 120/80
[2016-09-22 22:59] VITALS: BP 132/90
--- NOTE | 2016-09-23 06:29 | PN- Housestaff ---
JEAN PIERRE BENJAMIN,EITAN 09/23/16 0629: Subjective Follow-up For: Small bowel obstruction Subjective: Patient seen and examined at bedside. NGT was taken out and patient reports feeling much better since then. She denies any abdominal pain, nause and vomiting this morning. Took in some coffee last night with no issues. This morning she is trying a CLD. Patient had a couple of bowel movements (loose stools) since last night. Review of Systems Constitutional: Reports: see HPI. Objective Last 24 Hrs of Vital Signs/I&O Vital Signs Date Time Temp Pulse Resp B/P Pulse O2 O2 Flow FiO2 Ox Delivery Rate 09/23 1035 84 150/72 09/23 0800 Nasal 2.0L Cannula 09/23 0645 97.9 97 20 120/80 92 Nasal 2.0L Cannula 09/23 0000 96 Nasal 2.0L Cannula 09/22 2259 98.2 92 18 132/90 96 Nasal 2.0L Cannula 09/22 1600 Nasal 2.0L Cannula 09/22 1409 98.0 96 20 120/80 90 Room Air 09/22 1257 95 Nasal 2.0L Cannula Intake & Output 09/23 1600 09/23 0800 09/23 0000 Intake Total 700 1320 Output Total 1 300 450 Balance -1 400 870 Intake, IV 600 600 Intake, Oral 100 720 Number 1 Bowel Movements Output, Stool 1 Output, Urine 300 450 Physical Exam General Appearance: Alert, Oriented X3, Cooperative, No Acute Distress Other Physical Findings: Skin No Rashes, No Breakdown HEENT Atraumatic, PERRLA, EOMI Neck Supple, No JVD Cardiovascular Regular Rate, Normal S1, Normal S2, No Murmurs Lungs Clear to Auscultation, Normal Air Movement Abdomen Ventral wall herniation evident in the epigastric region. Nontender to palpation. Hypoactive bowel sounds. Neurological Normal Speech, Normal Tone, Sensation Intact Extremities No Clubbing, No Cyanosis, No Edema Current Medications: Current Medications Sig/Hawa Start time Last Medication Dose Route Stop Time Status Admin Acetaminophen 650 MG Q6P PRN 09/22 0215 AC 09/23 PO 0656 Amlodipine Besylate 2.5 MG DAILY 09/23 1000 CAN PO Cholecalciferol 1,000 IU DAILY 09/23 1000 AC 09/23 PO 1034 Clonazepam 0.5 MG BID 09/23 1000 AC 09/23 PO 09/30 0959 1034 Dextrose/Sodium 1,000 ML Q20H 09/23 0945 AC 09/23 Chloride IV 1036 Dextrose/Sodium 1,000 ML Q13H 09/22 1045 DC 09/23 Chloride IV 0100 Ferrous Sulfate 325 MG DAILY 09/23 1000 AC 09/23 PO 1034 Folic Acid 1 MG DAILY 09/23 1000 AC 09/23 PO 1034 Gabapentin 300 MG BID 09/23 1000 AC 09/23 PO 1034 Heparin Sodium 5,000 UNIT Q8 09/22 0600 AC 09/23 (Porcine) SC 0649 Lisinopril 20 MG DAILY 09/23 1036 AC PO Loratadine 10 MG DAILY 09/23 1000 AC 09/23 PO 1034 Lorazepam 0.25 MG BID PRN 09/23 0930 AC PO 09/30 0929 Lorazepam 0.5 MG BID 09/22 1033 DC 09/22 IV 2104 Magnesium Hydroxide 30 ML Q48 PRN 09/23 0930 AC PO Metoprolol Tartrate 12.5 MG BID 09/23 1000 AC 09/23 PO 1035 Omeprazole 20 MG DAILY AC 09/23 1000 AC 09/23 PO 1034 Ondansetron HCl 4 MG Q6P PRN 09/22 0230 AC IV Pantoprazole Sodium 40 MG DAILY 09/22 1000 AC 09/22 IV 0925 Perphenazine 3 MG DAILY 09/23 1000 AC 09/23 PO 1034 Tiotropium [place] 1 PUF DAILY 09/23 1000 AC 09/23 INH 1035 Tramadol HCl 25 MG Q6-PRN PRN 09/22 1045 AC PO Last 24 Hrs of Lab/Maurice Results Last 24 Hrs of Labs/Mics: Laboratory Tests 09/23/16 0645: Anion Gap 8, Estimated GFR > 60, BUN/Creatinine Ratio 40.0 H, Iron 47, TIBC 273 , Ferritin 196.0, Tfu-T-Kfposgnnehw Pept Pending, CBC w Diff NO MAN DIFF REQ, RBC 3.13 L, MCV 87.5, MCH 29.2, RDW 14.2, MPV 7.7, Gran % 61.2, Lymphocytes % 24.2, Monocytes % 12.0 H, Eosinophils % 2.2, Basophils % 0.4, Absolute Granulocytes 4.8, Absolute Lymphocytes 1.9, Absolute Monocytes 0.9 H, Absolute Eosinophils 0.2, Absolute Basophils 0, PUBS MCHC 33.4 Assessment/Plan Assessment: 81-year-old female with past medical history of COPD, hypertension, perforated duodenal ulcer, ventral abdominal wall hernia who presented with abdominal pain with nausea and vomiting secondary to partial small bowel obstruction with moderate size left paramedian ventral abdominal wall hernia. Small bowel obstruction Secondary to partially obstructed bowel loop in ventral abdominal wall hernia as eveidnet on CT abdomen/pelvis. Obstruction improving s/p decompression with NGT and keeping the patient on NPO for 1 day. Moving bowels and tolerating a liquid diet with no issues. * Nothing by mouth with NG suction * Cont to appreciate surg recs - no urgent surgical interventions indicated for now * Repeat KUB today * Advance diet as tolerated, as long as KUB does not show worsening obsruction/ constipation * Gentle IV hydration until patient can tolerate a full diet Anemia Patient's initial Hg on admission was 11 (normocytic). It has been trending down since then. Most likely 2/2 iron deficiency for which she takes iron supplements at home. * Resume home med ferrous sulfate 1000U daily * Check CBC daily, trend H/H - 9.1 & 27.4 today * Check [place] stool test LACY - Resolved Patient presented with an elevated creatinine of 2.3 (baseline of 1.2). This was most likely 2/2 hypovelmic status from dehydration in the setting of persistent vomiting. Creatinine normalized following aggressive IV hydration upon the admission. * Check BEP daily, trend Cr - 0.7 today * Gentle IV hydration as discussed above History of HTN Patient's BP has been on a lower side most likely due to her hypovelmic status on initial presentation. BP is holding up in 120-130's systolically currently. * Resume home med metoprolol 12.5mg PO BID * Keep holding other home antihypertensives (amlodipine 2.5mg, Lisinopril 20mg) until her BP further improves History of GERD * Cont home med Prilosec 20mg PO daily History of COPD * Oxygen support with TRC neb tx as needed * Cont home med Spiriva History of schizoaffective disorder * Cont clonazepam, lorazepam, perphenazine at home doses DVT Prophylaxis * SC heparin Code Status * Full code Problem List: 1. Small bowel obstruction Pain Ratin Pain Location: Back (chronic) Pain Goal: Pain 4 or less Pain Plan: Mild pathway Tomorrow's Labs & Rationales: BEP to monitor kidney fx in the setting of LACY RICHARD BENJAMIN,JANAY 09/23/16 1149: Attending MD Review Statement Attending Statement Attending MD Statement: examined this patient, discuss w/resident/PA/REPAIRER SWITCHGEAR, agreed w/resident/PA/REPAIRER SWITCHGEAR, reviewed EMR data (avail), discussed with nursing, discussed with case mgmt, amended to note Attending Assessment/Plan: Patient seen and examined. Seasonal comfortably in the chair not in any distress. NG tube was discontinued earlier on by the surgical service. She is tolerating clear liquid diet. She is hungry and very eager to advance her diet. She denies nausea vomiting. Denies any abdominal pain. On examination abdomen is obese and nonsymmetrical due to her ventral hernia. Any however is easily reducible and abdomen is soft and nontender with normal bowel sounds. She reports continued bowel movements. Surgical evaluation for ventral hernia has been deferred by the surgical service. Recommendations: -Advance to full liquid diet tonight. -If patient tolerates her diet overnight she may be discharged home in the a.m. Patient is in agreement with this plan. -She has mild anemia which appears to be chronic. Check stool guaiac and follow -up iron profile.
[2016-09-23 06:45] VITALS: BP 120/80
--- NOTE | 2016-09-23 07:23 | PN- General Surgery ---
See Addendum Subjective Subjective: Tolerating clears. No nausea. Denies abdominal pain. Reports a bm this morning. She states she does not want her hernia fixed at this time. Objective Vital Signs and I&Os Vital Signs Date Time Temp Pulse Resp B/P Pulse O2 O2 Flow FiO2 Ox Delivery Rate 09/23 0645 97.9 97 20 120/80 92 Nasal 2.0L Cannula 09/22 2259 98.2 92 18 132/90 96 Nasal 2.0L Cannula 09/22 1600 Nasal 2.0L Cannula 09/22 1409 98.0 96 20 120/80 90 Room Air 09/22 1257 95 Nasal 2.0L Cannula 09/22 1001 100 Nasal 2.0L Cannula 09/22 0933 Nasal 2.0L Cannula 09/22 0800 Nasal Cannula Intake & Output 09/23 0800 09/23 0000 09/22 1600 09/22 0800 09/22 0000 09/21 1600 Intake Total 1320 073 653 2367 Output Total 450 700 575 Balance 870 831 565 5320 Intake, IV 600 307 581 7347 Intake, Oral 720 0 Number 1 Bowel Movements Output, 200 350 Gastric Drainage Output, Urine 450 500 225 Patient 180 lb 180 lb Weight Physical Exam: General - alert & oriented. comfortable. no acute distress. Abdomen - soft. active bowel sounds appreciated. reducible incisional hernia present, nontender. Assessment/Plan Assessment/Plan Ms. Valentine is an 81-year-old female with known reducible incisional hernia, with resolved sbo, currently not interested in hernia repair currently tolerating clears. advance diet as tolerated. d/c iv fluids will d/w /Sandra s/o unless further issues arise d/c as per primary team
[2016-09-23 08:02] LABS: ABSOLUTE BASOPHIL COUNT 0 /CUMM (0.0-0.2); ABSOLUTE EOSINOPHIL COUNT 0.2 /CUMM (0.0-0.7); ABSOLUTE GRANULOCYTE CT 4.8 /CUMM (1.4-6.5); ABSOLUTE LYMPH COUNT 1.9 /CUMM (1.2-3.4); ABSOLUTE MONOCYTE COUNT 0.9 /CUMM (0.10-0.60); BASOPHIL % 0.4 % (0.0-2.0); EOSINOPHIL % 2.2 % (0-5); GRANULOCYTE % 61.2 % (42.2-75.2); HEMATOCRIT 27.4 % (37-47); MEAN CORPUSCULAR HGB 29.2 PG (27.0-31.0); MEAN CORPUSCULAR HGB CONC 33.4 G/DL (33.0-37.0); MEAN CORPUSCULAR VOLUME 87.5 FL (81.0-99.0); MEAN PLATELET VOLUME 7.7 FL (7.4-10.4); PLATELET COUNT 277 /CUMM (130-400); RBC DISTRIBUTION WIDTH 14.2 % (11.5-14.5); RED BLOOD CELL CT 3.13 /CUMM (4.20-5.40); WHITE BLOOD CELL COUNT 7.9 /CUMM (4.8-10.8)
--- NOTE | 2016-09-23 09:37 | NUR ---
ATTEMPTED TO WEAN OXYGEN. AMBULATED WITH PHSYICAL THERAPY. SATURATION DOWN TO 80% ON RA AFTER AMBULATING SHORT DISTANCE. WHEEZY TO AUSCULTATION. REPORTED TO DR. GREENFIELD. IST AT BEDSIDE AND ENCOURAGED. [facility] EVAL ORDERED.
[2016-09-23 15:28] VITALS: BP 120/68
--- NOTE | 2016-09-23 17:04 | RADIOLOGY REPORT ---
EXAMINATION: [id number] VIEWS, XRY-CHEST XRAY, PA AND LATERAL CLINICAL INFORMATION: 81-year-old female with cough and episodes of desaturation. Nausea and vomiting. Intestinal obstruction on 09/21/2016. COMPARISON: Chest x-ray done 08/06/2016. Subsequent chest x-rays from September [address] of the abdomen and pelvis on 09/21/2016. TECHNIQUE: PA and lateral semierect view of the chest. AP supine and upright views of the abdomen. FINDINGS: CHEST: Reexamination shows no change in the cardiac silhouette which is top normal in size. There is a small subpulmonic left-sided pleural effusion. The lungs are symmetrically aerated. There is no sign of dominant consolidation. ABDOMEN: Compared to the CT of 09/21/2016, there has been decompression of the small bowel loops and air is seen in the colon to the rectum. No obstruction is suspected. There is no free air. Severe osteoarthritis involves both hips and multilevel degenerative disc disease is present in the lumbar spine. IMPRESSION: 1. No pneumonia. 2. Small left subpulmonic pleural effusion. 3. Improved appearance of the abdomen, no obstruction.
[2016-09-23 22:33] VITALS: BP 124/60
--- NOTE | 2016-09-24 06:40 | PN- Housestaff ---
JEAN PIERRE BENJAMIN,JOSE MANUEL 09/24/16 0639: Subjective Follow-up For: Small bowel obstruction Subjective: Patient seen and examined at bedside. Tolerating a regular diet with no nasuea or vomiting. Denies any abdominal pain this morning. She ate a tuna finsh sandwich last night with no issues. Endorses occassional cough, would like a rx for Mucinex upon discharge. She reports feeling well and ready to be discharged. Review of Systems Constitutional: Reports: see HPI. Objective Last 24 Hrs of Vital Signs/I&O Vital Signs Date Time Temp Pulse Resp B/P Pulse O2 O2 Flow FiO2 Ox Delivery Rate 09/24 0834 20 95 Nasal 1.0L Cannula 09/24 0832 20 87 Room Air 09/24 0814 85 128/88 09/24 0813 85 128/88 09/24 0805 20 93 Room Air 09/24 0648 97.9 85 20 128/74 96 Nasal 1.0L Cannula 09/24 0000 Nasal 1.0L Cannula 09/23 2233 98.0 84 20 124/60 95 Nasal 1.0L Cannula 09/23 2121 84 124/80 09/23 1950 94 Nasal 1.0L Cannula 09/23 1759 74 128/70 09/23 1600 Nasal 1.0L Cannula 09/23 1528 97.5 77 20 120/68 100 09/23 1441 94 Nasal 1.0L Cannula 09/23 1247 170/80 09/23 1035 84 150/72 Intake & Output 09/24 1600 09/24 0800 09/24 0000 Intake Total 360 730 Output Total 500 300 Balance -140 430 Intake, IV 10 Intake, Oral 360 720 Number 2 Bowel Movements Output, Urine 500 300 Physical Exam General Appearance: Alert, Oriented X3, Cooperative, No Acute Distress Other Physical Findings: Skin No Rashes, No Breakdown HEENT Atraumatic, PERRLA, EOMI Neck Supple, No JVD Cardiovascular Regular Rate, Normal S1, Normal S2, No Murmurs Lungs Clear to Auscultation, Normal Air Movement Abdomen Ventral wall herniation evident in the epigastric region. Nontender to palpation. Hypoactive bowel sounds. Neurological Normal Speech, Normal Tone, Sensation Intact Extremities No Clubbing, No Cyanosis, No Edema Current Medications: Current Medications Sig/Hawa Start time Last Medication Dose Route Stop Time Status Admin Acetaminophen 650 MG Q6P PRN 09/22 0215 AC 09/23 PO 0656 Albuterol Sulfate 3 ML BID 09/23 2200 AC 09/23 INH 1950 Amlodipine Besylate 2.5 MG DAILY 09/23 1529 AC 09/23 PO 1759 Amlodipine Besylate 2.5 MG DAILY 09/23 1000 CAN PO Cholecalciferol 1,000 IU DAILY 09/23 1000 AC 09/24 PO 0814 Clonazepam 0.5 MG BID 09/23 1000 AC 09/24 PO 09/30 0959 0814 Dextrose/Sodium 1,000 ML Q20H 09/23 0945 DC 09/23 Chloride IV 1036 Dextrose/Sodium 1,000 ML Q13H 09/22 1045 DC 09/23 Chloride IV 0100 Ferrous Sulfate 325 MG DAILY 09/23 1000 AC 09/24 PO 0813 Folic Acid 1 MG DAILY 09/23 1000 AC 09/24 PO 0813 Furosemide 40 MG .STK-MED ONE 09/23 1409 DC IV 09/23 1410 Furosemide 20 MG ONCE ONE 09/23 1345 DC 09/23 IV 09/23 1346 1430 Gabapentin 300 MG BID 09/23 1000 AC 09/24 PO 0812 Guaifenesin 600 MG Q12 PRN 09/23 1345 AC PO Heparin Sodium 5,000 UNIT Q8 09/22 0600 AC 09/24 (Porcine) SC 0514 Ipratropium [place] 2.5 ML BID 09/23 2200 AC 09/23 INH 1950 Lisinopril 20 MG DAILY 09/23 1036 AC 09/24 PO 0814 Loratadine 10 MG DAILY 09/23 1000 AC 09/24 PO 0813 Lorazepam 0.25 MG BID PRN 09/23 0930 AC 09/24 PO 09/30 0929 0212 Lorazepam 0.5 MG BID 09/22 1033 DC 09/22 IV 2104 Magnesium Hydroxide 30 ML Q48 PRN 09/23 0930 AC PO Metoprolol Tartrate 12.5 MG BID 09/23 1000 AC 09/24 PO 0813 Omeprazole 20 MG DAILY AC 09/23 1000 AC 09/24 PO 0514 Ondansetron HCl 4 MG Q6P PRN 09/22 0230 AC IV Pantoprazole Sodium 40 MG DAILY 09/22 1000 DC 09/22 IV 0925 Patient Medication 1 ED .STK-MED ONE 09/23 1401 DC Teaching ED 09/23 1402 Perphenazine 3 MG DAILY 09/23 1000 AC 09/24 PO 0813 Tiotropium [place] 1 PUF DAILY 09/23 1000 AC 09/24 INH 0814 Tramadol HCl 25 MG Q6-PRN PRN 09/22 1045 AC PO Last 24 Hrs of Lab/Maurice Results Last 24 Hrs of Labs/Mics: Laboratory Tests 09/24/16 0642: CBC w Diff NO MAN DIFF REQ, RBC 3.16 L, MCV 87.9, MCH 29.5, RDW 14.1, MPV 7.7, Gran % 62.4, Lymphocytes % 25.0, Monocytes % 9.6 H, Eosinophils % 2.4, Basophils % 0.6, Absolute Granulocytes 4.8, Absolute Lymphocytes 1.9, Absolute Monocytes 0.7 H, Absolute Eosinophils 0.2, Absolute Basophils 0, PUBS MCHC 33.6 Microbiology 09/23 1338 LOWER RESP: Respiratory Culture - COLB 09/23 1337 LOWER RESP: Gram Stain - COLB Assessment/Plan Assessment: 81-year-old female with past medical history of COPD, hypertension, perforated duodenal ulcer, ventral abdominal wall hernia who presented with abdominal pain with nausea and vomiting secondary to partial small bowel obstruction with moderate size left paramedian ventral abdominal wall hernia. # Small bowel obstruction - resolved Secondary to partially obstructed bowel loop in ventral abdominal wall hernia as eveidnet on CT abdomen/pelvis. Obstruction improving s/p decompression with NGT and keeping the patient on NPO for 1 day. Moving bowels and tolerating a liquid diet with no issues. - AXR/CXR (09/23): No pneumonia. Small left subpulmonic pleural effusion. Improved appearance of the abdomen, no obstruction. * Continue heart healthy diet * Cont to appreciate surg recs - no urgent surgical interventions indicated for now # Acute hypoxic respiratory failure Patient desatting in 80's, requiring oxygen supplement up to 4 liters. Most likely secondary to volume overload from the IV resucsitaiton she received following the admission and a component of COPD. CXR consistent with small pleural effusion on the left side. No signs or symptoms of heart failure on exam - no peripheral edema or S3 appreciated. Denies shortness of breath, lightheadedness, dizziness. * Give IV Lasix 40mg once today * Oxygen support as needed * TRC treatment as needed * Add albuterol to the discharge meds # Chronic anemia Patient's initial Hg on admission was 11 (normocytic). It has been trending down since then. Most likely 2/2 iron deficiency for which she takes iron supplements at home. * Resume home med ferrous sulfate 1000U daily * Check CBC daily, trend H/H - improved to 9.3 & 27.8 today * Check [place] stool test - negative # LACY - Resolved Patient presented with an elevated creatinine of 2.3 (baseline of 1.2). This was most likely 2/2 hypovelmic status from dehydration in the setting of persistent vomiting. Creatinine normalized following aggressive IV hydration upon the admission. * Encourage adequate hydration by mouth # History of HTN Patient's BP has been on a lower side most likely due to her hypovelmic status on initial presentation. BP is holding up in 120-130's systolically currently. * Cont home meds metoprolol 12.5mg PO BID, amlodipine 2.5mg QD, Lisinopril 20mg QD # History of GERD * Cont home med Prilosec 20mg PO daily # History of COPD * Oxygen support with TRC neb tx as needed * Cont home med Spiriva # History of schizoaffective disorder * Cont clonazepam, lorazepam, perphenazine at home doses # DVT Prophylaxis * SC heparin # Code Status * Full code Problem List: 1. Small bowel obstruction Pain Ratin Pain Location: 0 Pain Goal: Remain pain free Pain Plan: Mild pathway Tomorrow's Labs & Rationales: None - discharge RICHARD BENJAMIN,JOYTeddy 09/24/16 1229: Attending MD Review Statement Attending Statement Attending MD Statement: examined this patient, discuss w/resident/PA/ASH WORKER, agreed w/resident/PA/ASH WORKER, discussed with family, reviewed EMR data (avail), discussed with nursing, discussed with case mgmt, amended to note Attending Assessment/Plan: Patient seen and examined. Alert and oriented. Denies nausea vomiting. Denies abdominal pain. Tolerating her meals. Yesterday she was noted to desaturate on room air while ambulating. She desaturated again this morning when ambulating the physical therapist. Also yesterday nursing staff reported that she was coughing with meals. She was seen by the speech therapist and a barium swallow was recommended. Patient however refuses to have this test. I did have an extensive conversation with the patient's daughter. She is aware that patient coughs occasionally with meals. She reports that this is chronic and has been going on for over a year. She denies any episodes of overt aspiration. When I explain the hypoxia to her she reported that she was also present about this. When I asked why she stated that during hospitalizations in the past she ends up on oxygen supplementation. She however will be discharged on home oxygen before. She follows up with her primary care provider who prescribes Spiriva only for her COPD. On examination patient is alert and oriented 3. She is quite anxious and wants to go home. She no longer wants to be in the hospital. She has no jugular venous distention. Lungs are clear bilaterally to with diminished air entry. Abdomen is soft and nontender with normal bowel sounds. Ventral hernia still present. She has no peripheral edema. She did get a dose of Lasix yesterday and another dose was this morning on account of her hypoxia. She however does not appear to be volume overloaded. Problems: 1. Small bowel obstruction; resolved 2. Hypoxia; probably chronic. Patient has required oxygen supplementation since admission. 3. COPD 4. Acute kidney injury; resolved. 5. Small left subpulmonic pleural effusion. Recommendations: -Continue diuretic as tolerated. Follow-up with the surgical service as an outpatient. -Patient medically stable to be discharged today. However reassess need for home oxygen with pulse ox on room air at rest and with ambulation. If patient meets criteria she will be discharged on oxygen supplementation. -Outpatient pulmonary service referral. -Add albuterol to her discharge medications to be utilize 4 times a day. -Follow-up with primary care provider next week.
[2016-09-24 06:48] VITALS: BP 128/74
--- NOTE | 2016-09-24 06:48 | Patient Discharge Instructions ---
Discharge Instructions General Discharge Information You were seen/treated for: Small bowel obstruction Watch for these problems: Return to ED if you have worsening/persistent nause, vomiting, abdominal pain, constipation, stool changes. Stop the bowel regimen if you continue to have loose stools or diarrhea. Special Instructions: 1. Please follow up with your primary care physician within a week of discharge. 2. Please see Dr. Remigio Bob if you wish to pursue a hernia repair surgery. 3. Please see Dr. Mcdonnell (service officer) for your diarrhea and/or constipation within 2 weeks of discharge. You may also need a colonoscopy. 4. You refused the modifiedbarium swallow test in the hospital, please follow up with your PCP for outpatient modified barium swallow test for better evaluation of your swallowing function. Diet Continue normal diet: Yes Recommended Diet: Heart Healthy Activity Full Activity/No Limits: Yes Acute Coronary Syndrome Inclusion Criteria At DC or during hospital stay patient has or had the following: ACS DIAGNOSIS No Discharge Core Measures Meds if any: Prescribed or Continued at Discharge Meds if any: NOT Prescribed or Continued at Discharge Congestive Heart Failure Inclusion Criteria At DC or during hospital stay patient has or had the following: CHF DIAGNOSIS No Discharge Core Measures Meds if any: Prescribed or Continued at Discharge Meds if any: NOT Prescribed or Continued at Discharge Cerebrovascular accident Inclusion Criteria At DC or during hospital stay patient has or had the following: CVA/TIA Diagnosis No Discharge Core Measures Meds if any: Prescribed or Continued at Discharge Meds if any: NOT Prescribed or Continued at Discharge Venous thromboembolism Inclusion Criteria VTE Diagnosis No VTE Type NONE VTE Confirmed by (Test) NONE Discharge Core Measures - Per Current guidelines, there needs to be overlap - treatment for the first 5 days of Warfarin therapy. - If discharged on Warfarin prior to 5 days of - overlap therapy, the patient will need to be - assessed for post discharge needs including - *Post discharge parental anticoagulation - *Warfarin and/or parental anticoagulation education - *Follow up date to check INR post discharge At least 5 days overlap therapy as Inpatient No Meds if any: Prescribed or Continued at Discharge Note: Overlap Therapy is Warfarin and Anticoagulant Meds if any: NOT Prescribed or Continued at Discharge
[2016-09-24] MEDS ORDERED: LOPERAMIDE2 M2 PO (07:50)
[2016-09-24 08:00] LABS: ABSOLUTE BASOPHIL COUNT 0 /CUMM (0.0-0.2); ABSOLUTE EOSINOPHIL COUNT 0.2 /CUMM (0.0-0.7); ABSOLUTE GRANULOCYTE CT 4.8 /CUMM (1.4-6.5); ABSOLUTE LYMPH COUNT 1.9 /CUMM (1.2-3.4); ABSOLUTE MONOCYTE COUNT 0.7 /CUMM (0.10-0.60); BASOPHIL % 0.6 % (0.0-2.0); EOSINOPHIL % 2.4 % (0-5); GRANULOCYTE % 62.4 % (42.2-75.2); HEMATOCRIT 27.8 % (37-47); MEAN CORPUSCULAR HGB 29.5 PG (27.0-31.0); MEAN CORPUSCULAR HGB CONC 33.6 G/DL (33.0-37.0); MEAN CORPUSCULAR VOLUME 87.9 FL (81.0-99.0); MEAN PLATELET VOLUME 7.7 FL (7.4-10.4); PLATELET COUNT 297 /CUMM (130-400); RBC DISTRIBUTION WIDTH 14.1 % (11.5-14.5); RED BLOOD CELL CT 3.16 /CUMM (4.20-5.40); WHITE BLOOD CELL COUNT 7.7 /CUMM (4.8-10.8)
[2016-09-24] MEDS ORDERED: LOPERAMIDE2 M1 PO (08:00)
[2016-09-24] MEDS ORDERED: GUAIFENESIN ER600 MG PO (08:05)
[2016-09-24] MEDS ORDERED: PROAIR HFA8.5 GM INH (10:24)
[2016-09-24] MEDS ORDERED: VENTOLIN HFA18 GM INH (11:12)
[2016-09-24 13:48] VITALS: BP 132/76
--- NOTE | 2016-09-24 13:52 | NUR ---
PATIENT SITTING IN CHAIR ON 1L NC - RR 18 SPO2 95% PATIENT AMBULATING ON ROOM AIR - RR 20 SPO2 92%, 93% HR 100 PATIENT DENIED SHORTNESS OF BREATH WHEN AMBULATING. PATINENT SITTING IN CHAIR ON ROOM AIR - RR 20 SPO2 94% HR 93 MD JOSE MANUEL GREENFIELD NOTIFIED.
--- NOTE | 2016-09-28 16:21 | Discharge Summary ---
Visit Information Visit Dates Admission Date: 09/22/16 Discharge Date: 09/24/16 Hospital Course Course Attending Physician: JANAY RAMOS M.D Primary Care Physician: TRISTIAN FISCHER MD Hospital Course: 81-year-old female with past medical history of COPD, hypertension, perforated duodenal ulcer, ventral abdominal wall hernia who presented with abdominal pain with nausea and vomiting secondary to partial small bowel obstruction with moderate size left paramedian ventral abdominal wall hernia. The was admitted to the general medicine service for the management of following problems: # Small bowel obstruction - resolved Secondary to partially obstructed bowel loop in ventral abdominal wall hernia as eveidnet on CT abdomen/pelvis. Surgery was consulted and recommended no surgical interventions as per patient's wish. Obstruction improved after decompression with NGT and keeping the patient on NPO for 1 day. Patient was moving bowels and tolerating a liquid diet with no issues by the time of discharge. AXR on 09/23 shnwed improved appearance of the abdomen, no obstruction. Patient was instructed to follow up with Dr. Luca Bob for consideration of hernia repair surgery. # Acute hypoxic respiratory failure During her hospital stay the patient desatted in 80's, requiring oxygen supplement up to 4 liters via NC. Most likely secondary to volume overload from the IV resucsitaiton she received following the admission and a component of COPD. CXR consistent with small pleural effusion on the left side. No signs or symptoms of heart failure on exam - no peripheral edema or S3 appreciated. Denied shortness of breath, lightheadedness, dizziness. Patient's hypoxia resolved after diuresis with IV Lasix. Albuterol was added to her discharge med list for management of COPD. # Chronic anemia Patient's initial Hg on admission was 11 (normocytic). It has been trending down since then. Most likely 2/2 iron deficiency for which she takes iron supplements at home. She was kept on home med ferrous sulfate 1000U daily. We checked CBC daily and her H/H remained stable without acute drop. Guaic stool test was negative. # LACY - Resolved Patient presented with an elevated creatinine of 2.3 (baseline of 1.2). This was most likely 2/2 hypovelmic status from dehydration in the setting of persistent vomiting. Creatinine normalized following aggressive IV hydration upon the admission. # History of HTN Patient's BP has been on a lower side most likely due to her hypovelmic status on initial presentation. BP improved to 120-130's systolically. Patient resumed on home meds metoprolol 12.5mg PO BID, amlodipine 2.5mg QD, Lisinopril 20mg QD. # History of GERD Patient was kept on home med Prilosec 20mg PO daily # History of COPD Patient was kept on home med Spiriva. She received oxygen support with TRC neb tx as needed # History of schizoaffective disorder Patient was kept on clonazepam, lorazepam, perphenazine at home doses. Allergies: Coded Allergies: No Known Allergies (08/06/16) Disposition Summary Disposition Principal Diagnosis: Small bowel obstruction Additional Diagnosis: Acute hypoxic respiratory failure Acute renal failure Discharge Disposition: SNF Discharge Instructions General Discharge Information Code Status: Full Code Patient's Diet: Heart healthy diet Patient's Activity: As tolerated Follow-Up Instructions/Appts: 1. Please follow up with your primary care physician within a week of discharge. 2. Please see Dr. Luca Bob if you wish to pursue a hernia repair surgery. 3. Please see Dr. Mcdonnell (sleeve setter) for your diarrhea and/or constipation within 2 weeks of discharge. You may also need a colonoscopy. 4. You refused the modifiedbarium swallow test in the hospital, please follow up with your PCP for outpatient modified barium swallow test for better evaluation of your swallowing function. Medications at Discharge Discharge Medications: Stop taking the following medications: Loperamide HCl (Loperamide) 2 MG TABLET ORAL EVERY 3 HOURS as needed for DIARRHEA Continue taking these medications: Gabapentin (Gabapentin) 300 MG CAPSULE 300 Milligram ORAL TWICE DAILY Comments: Last Taken: 09/24/16 Time: 0812 AM Loratadine (Claritin) 10 MG CAPSULE 10 Milligram ORAL DAILY Omeprazole (Omeprazole) 20 MG CAPSULE. 1 Capsule ORAL DAILY Comments: Last Taken: 09/24/16 Time: 0500 AM Lisinopril (Lisinopril) 20 MG TABLET 1 Tablet ORAL DAILY Comments: Last Taken: 09/24/16 Time: 0814 AM Folic Acid (Folic Acid) 1 MG TABLET 1 Tablet ORAL DAILY Comments: Last Taken: 09/24/16 Time: 0813 AM Cholecalciferol (Vitamin D3) (Vitamin D) 1,000 UNIT TABLET 1 Tablet ORAL DAILY Comments: NOT GIVEN AT HOSPITAL Metoprolol Tartrate (Metoprolol Tartrate) 25 MG TABLET 12.5 Milligram ORAL TWICE DAILY Comments: Last Taken: 09/24/16 Time: 0813 AM Amlodipine Besylate (Amlodipine Besylate) 2.5 MG TABLET 1 Tablet ORAL DAILY Comments: Last Taken: 09/24/16 Time: 0951 AM Tylenol With Codeine (Tylenol With Codeine #3 Tablet) 300 MG-30 MG TABLET 1 Tablet ORAL TWICE DAILY Comments: Last Taken: NOT GIVEN AT HOSPITAL Time: Clonazepam (Clonazepam) 0.5 MG TABLET 1 Tablet ORAL TWICE DAILY Comments: Last Taken: 09/24/16 Time: 0814 AM Tiotropium [place] (Spiriva) 18 MCG CAP.W.DEV 18 Microgram Inhale through mouth DAILY Comments: Last Taken: 09/24/16 Time: 0800 AM Sennosides/Docusate Sodium (Senna S Tablet) 8.6 MG-50 MG TABLET 1 Tablet ORAL DAILY Comments: Last Taken: NOT GIVEN AT HOSPITAL Time: Acetaminophen (Tylenol) 325 MG TABLET 650 Milligram ORAL TAKE AT BEDTIME Comments: NOT GIVEN AT HOSPITAL PER [facility] Perphenazine (Perphenazine) 2 MG TABLET 3 Milligram ORAL DAILY Comments: Last Taken: 09/24/16 Time: 0800 AM Acetaminophen (Pain Relief) 650 MG TABLET.ER 650 Milligram ORAL 1200 Comments: Last Taken: 09/23/16 Time: 0656 AM Bisacodyl (Biscolax) 10 MG SUPP.RECT 10 Milligram RECTALLY QODPRN as needed for CONSTIPATION Comments: Last Taken: NOT GIVEN AT HOSPITAL Time: Magnesium Hydroxide (Milk Of Magnesia) 400 MG/5 ML ORAL.SUSP 30 Milliliters ORAL QODPRN as needed for CONSTIPATION Comments: NOT GIVEN AT HOSPITAL Lorazepam (Ativan) 0.5 MG TABLET 0.25 Milligram ORAL BIDPRN as needed for ANXIETY Comments: Last Taken: 09/24/16 Time:0200 AM Clotrimazole (Antifungal) 1 % CREAM..G. 1 Application On the skin TWICE DAILY as needed for ANITFUNGAL Comments: NOT GIVEN AT HOSPITAL Ferrous Sulfate (IRON) 325 MG (65 MG IRON) CAPSULE.ER 325 Milligram ORAL DAILY Comments: Last Taken: 09/24/16 Time: 0813 AM Start taking the following new medications: Guaifenesin (Guaifenesin ER) 600 MG TAB.ER.12H 600 Milligram ORAL EVERY 12 HOURS as needed for COUGH Days = 10 No Refills Comments: Last Taken: NOT GIVEN AT HOSPITAL Time: Albuterol Sulfate (Ventolin Hfa) 90 MCG HFA.AER.AD 2 Puff Inhale through mouth EVERY 4-6 HOURS NEEDED as needed for COPD Qty = 1 No Refills Comments: Last Taken: 09/23/16 Time: 7:50 PM Copies To: AMADO BENJAMIN,TRISTIAN Saeed; JOSE ARMANDO BENJAMIN,LUCA MCDONNELL MD,VARUN Lee MD Review Statement Documenting Attending: JANAY RAMOS M.D Other Findings: I have reviewed the discharge summary
== END 2016-09-24 15:50 | disposition home health service (06) | DRG 394 ==
LOC: ENRESERVDT → ENRESERVTM → ERH 22:14 → ERHI 09-22 00:40 → ENPENDDIS 09-22 00:40 → 2NA 09-22 00:40
PROVIDERS: Internal Medicine; Physician Assistant Medical; ADMIT Internal Medicine
DX: K43.0 Incisional hernia with obstruction, without gangrene (principal); N17.9 Acute kidney failure, unspecified; I95.9 Hypotension, unspecified; J44.9 Chronic obstructive pulmonary disease, unspecified; R09.02 Hypoxemia; D64.9 Anemia, unspecified; E86.0 Dehydration; K21.9 Gastro-esophageal reflux disease without esophagitis; I10 Essential (primary) hypertension; Z87.891 Personal history of nicotine dependence; F25.9 Schizoaffective disorder, unspecified; F41.9 Anxiety disorder, unspecified
CPT/HCPCS: 2NAP; 36415; 74000; 74020; 74177; 81001; 82436; 87040; 87070; 87086; 93005; 93010; 96361; 96374; 97112-GO; 97116-GO; 97162-GP; 97530-GO; J1644; J1940; J2405; J3490; J7042